=== PATIENT | female | born 1945 | race Caucasian/White ===

== ENCOUNTER 2017-08-14 14:56 | Emergency (ER) | payer MEDICARE ==
[~2017-08-14] VITALS: Ht 165.1 cm; Wt 127.5 kg
[~2017-08-14 14:56] MED LIST: CARVEDILOL12.5 MG PO; DICLOFENAC SODI75 MG PO; DILANTIN100 MG PO; FLONASE2 SPRAY NS; HYDROCHLOROTHIA25 MG PO; LANSOPRAZOLE15 MG PO; LIPITOR10 MG PO; NORCO 5-325 TA1 EACH PO; OCUVITE LUTEIN1 EAC1 PO; PHENOBARBITAL32.4 MG PO; PRAMIPEXOLE0.125 MG PO; RANITIDINE HCL150 MG PO; TESSALON PERLE100 MG PO; VITAMIN C500 M1
[2017-08-14] MEDS ORDERED: OMEPRAZOLE20 MG PO (15:36)
[2017-08-14] MEDS ORDERED: GABAPENTIN100 MG PO (15:36)
== END 2017-08-14 20:21 | disposition short-term general hospital (02) ==
LOC: ED 14:56
PROC: 0T9B70Z Drainage of Bladder with Drainage Device, Via Natural or Artificial Opening (ICD-10-PCS; principal; 2017-08-14)
DX: G40.909 Epilepsy, unspecified, not intractable, without status epilepticus (principal); K21.9 Gastro-esophageal reflux disease without esophagitis; I10 Essential (primary) hypertension; I25.2 Old myocardial infarction; Z87.891 Personal history of nicotine dependence; Z88.6 Allergy status to analgesic agent; Z79.899 Other long term (current) drug therapy
CPT/HCPCS: 51701; 51702; 70450; 71045; 80053; 80185; 81001; 85025; 96374; 96375; 99285; J2060; J7040; Q2009

== ENCOUNTER 2017-08-23 13:00 | Emergency (ER) | payer MEDICARE ==
[~2017-08-23] VITALS: Ht 165.1 cm; Wt 127.5 kg
[~2017-08-23 13:00] MED LIST changes: +GABAPENTIN100 MG PO; +OMEPRAZOLE20 MG PO
[2017-08-23] MEDS ORDERED: PHENYTOIN SODI100 MG PO (13:43)
[2017-08-23] MEDS ORDERED: BACTRIM DS TAB1 EACH PO (14:39)
--- NOTE | 2017-08-23 20:49 | EKG ---
[facility] [address] [facility] [place], [place] [address] Signed Normal sinus rhythm ST \T\ T wave abnormality, consider anterior ischemia Abnormal ECG No previous ECGs available Confirmed by LITO CAMPBELL MD ([id number]) on 08/23/2017 8:49:38 PM Electronically Signed By: LITO CAMPBELL MD 08/23/17 2049 PATIENT NAME: GILLES ARELLANO Electrocardiogram DATE OF : 47 PHYSICIAN: LITO CAMPBELL MD REPORT #: [id number] REPORT IS CONFIDENTIAL AND NOT TO BE RELEASED WITHOUT AUTHORIZATION
== END 2017-08-23 15:07 | disposition home or self-care (01) ==
LOC: ED 13:00
DX: N39.0 Urinary tract infection, site not specified (principal); R42 Dizziness and giddiness; G40.909 Epilepsy, unspecified, not intractable, without status epilepticus; I25.2 Old myocardial infarction; I10 Essential (primary) hypertension; K21.9 Gastro-esophageal reflux disease without esophagitis; Z87.891 Personal history of nicotine dependence; Z88.6 Allergy status to analgesic agent; Z79.899 Other long term (current) drug therapy
CPT/HCPCS: 71045; 80053; 80185; 81001; 84484; 85025; 93005; 93010; 99283

== ENCOUNTER 2020-12-25 14:23 | Emergency (ER) | payer MEDICARE ==
[~2020-12-25] VITALS: Ht 165.1 cm; Wt 124.3 kg
[~2020-12-25 14:23] MED LIST changes: +BACTRIM DS TAB1 EACH PO; +PHENYTOIN SODI100 MG PO
--- OUTSIDE RECORDS SUMMARY | 2020-12-25 15:20 | XMS ---
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 Care History Medical/Surgical 06/05/2018 [facility] - Patient is currently established with [facility]. If patient is seen in the ED during business hours. Please contact CHWs at [facility]. Care Recommendation: This patient has had 5 or more Emergency Department visits in the last 12 months.\T\nbsp; Patient requires education on the scope and purpose of the ED as an acute care provider not a Primary Care Provider and should not be utilized for chronic conditions.\T\nbsp; These are guidelines and the provider should exercise clinical judgment when providing care. E.D. VISIT COUNT (12 MO.) [address] [place] [address] TOTAL 1 NOTE: Visits indicate total known visits. ED/UCC VISIT TRACKING (12 MO.) 12/25/2020 14:24 [facility]ON[facility] Angel [place] TYPE: Emergency COMPLAINT: - DIZZINESS INPATIENT VISIT TRACKING (12 MO.) No inpatient visits to display in this time frame [email or web address]
[2020-12-25] MEDS ORDERED: ZOFRAN4 MG PO (18:44)
[2020-12-25] MEDS ORDERED: CEPHALEXIN500 MG PO (18:44)
--- NOTE | 2020-12-26 09:09 | EKG ---
[facility] [address] [facility] [place] [address] Signed Normal sinus rhythm Nonspecific T wave abnormality Abnormal ECG When compared with ECG of 02-JUN-2018 12:27, T wave inversion now evident in Anterior leads Confirmed by LITO CAMPBELL MD ([id number]) on 12/26/2020 9:09:13 AM Electronically Signed By: LITO CAMPBELL MD 12/26/20908 PATIENT NAME: GILLES ARELLANO Electrocardiogram DATE OF : 47 PHYSICIAN: LITO CAMPBELL MD REPORT #: [id number] REPORT IS CONFIDENTIAL AND NOT TO BE RELEASED WITHOUT AUTHORIZATION
== END 2020-12-25 19:08 | disposition home or self-care (01) ==
LOC: ED 14:23
DX: N12 Tubulo-interstitial nephritis, not specified as acute or chronic (principal); G40.909 Epilepsy, unspecified, not intractable, without status epilepticus; I25.2 Old myocardial infarction; I10 Essential (primary) hypertension; K21.9 Gastro-esophageal reflux disease without esophagitis; Z87.891 Personal history of nicotine dependence; Z79.899 Other long term (current) drug therapy
CPT/HCPCS: 80053; 80185; 81001; 83735; 84484; 85025; 93005; 93010; 96365; 96366; 99284-25; J0696

== ENCOUNTER 2021-07-15 09:35 | Emergency (ER) | payer MEDICARE ==
[~2021-07-15] VITALS: Ht 165.1 cm; Wt 124.3 kg
[~2021-07-15 09:35] MED LIST changes: +CEPHALEXIN500 MG PO; +ZOFRAN4 MG PO
--- OUTSIDE RECORDS SUMMARY | 2021-07-15 09:42 | XMS ---
PreManage Notification: GILLES ARELLANO Security Ornamental Ironworker Events No recent Security Events currently on file CRITERIA MET - Group Notification CARE PROVIDERS SAWYER FOOTE [facility] 12/26/2020-Current PHONE: [phone] DELMER MARCUS Internal Medicine: Pulmonary Disease 06/05/2018-Current PHONE: Unknown Raul has no Care Guidelines for this patient. Care History Medical/Surgical 06/05/2018 [facility] - Patient is currently established with [facility]. If patient is seen in the ED during business hours. Please contact CHWs at [facility]. Care Recommendation: This patient has had 5 [...] providing care. E.D. VISIT COUNT (12 MO.) 2 LEONID Villegas TOTAL 2 NOTE: Visits indicate total known visits. ED/UCC VISIT TRACKING (12 MO.) 07/15/2021 09:36 [facility] Angel OR TYPE: Emergency COMPLAINT: - SEIZURE 12/25/2020 14:24 LEON[facility] Angel [place] TYPE: Emergency COMPLAINT: - DIZZINESS DIAGNOSES: - Other terminal makeup operator (current) drug therapy - Old myocardial infarction - Tubulo-interstitial nephritis, not specified as acute or chronic - Epilepsy, unspecified, not intractable, without status epilepticus - Personal history of nicotine dependence - Dizziness and giddiness - Gastro-esophageal reflux disease without esophagitis - Essential (primary) hypertension INPATIENT VISIT TRACKING (12 MO.) No inpatient visits to display in this time frame [email or web address]
== END 2021-07-15 14:11 | disposition home or self-care (01) ==
LOC: ED 09:35
DX: G40.909 Epilepsy, unspecified, not intractable, without status epilepticus (principal); I10 Essential (primary) hypertension; K21.9 Gastro-esophageal reflux disease without esophagitis; Z87.891 Personal history of nicotine dependence; Z88.6 Allergy status to analgesic agent; Z79.899 Other long term (current) drug therapy
CPT/HCPCS: 80048; 80185; 81001; 85025; 96365; 99284-25; Q2009

== ENCOUNTER 2022-06-08 14:35 | Emergency (ER) | payer MEDICARE ==
[~2022-06-08] VITALS: Ht 165.1 cm; Wt 124.3 kg
[2022-06-08] MEDS ORDERED: ATORVASTATIN CA40 MG PO (14:48)
== END 2022-06-08 21:26 | disposition home or self-care (01) ==
LOC: ED 14:35
DX: D64.9 Anemia, unspecified (principal); K63.9 Disease of intestine, unspecified; I10 Essential (primary) hypertension; G40.909 Epilepsy, unspecified, not intractable, without status epilepticus; I25.2 Old myocardial infarction; K21.9 Gastro-esophageal reflux disease without esophagitis; Z87.891 Personal history of nicotine dependence; Z88.6 Allergy status to analgesic agent; Z79.899 Other long term (current) drug therapy
CPT/HCPCS: 36415; 36430; 74177; 80048; 85025; 85610; 86850; 86900; 86901; 86922; 99284-25; P9016; Q9967

== ENCOUNTER 2022-06-29 14:59 | Inpatient (IN) | payer MEDICARE ==
[~2022-06-29] VITALS: Ht 165.1 cm; Wt 101.4 kg
[~2022-06-29 14:59] MED LIST changes: +ATORVASTATIN CA40 MG PO
--- NOTE | 2022-07-07 15:25 | NUR ---
07/07/22 1525 Nohemi Valdes 1515 PATIENT ARRIVES TO PACU RESTING WITH EYES CLOSED. MOANING AT TIMES, C/O "IT HURTS." RESP EVEN AND UNLABORED, MASK AT 6 LITERS. 1520 PATIENT CONTINUES TO C/O ABD PAIN, RESTING WITH EYES CLOSED, MOANING AT TIMES. WHEN ASKED RATES PAIN AT 10/10. DENIES NAUSEA.
--- NOTE | 2022-07-07 16:20 | NUR ---
PT TO FLOOR WITH [facility]. PT AWAKE BUT DROWSY. RATES PAIN 6\10. STATES SHE LIVES AT HOME AT 3\10.
--- NOTE | 2022-07-07 17:12 | NUR ---
ADMINISTERED PAIN MEDS FOR 9\10 BACK PAIN. PT HAS DTR AT BEDSIDE.
--- NOTE | 2022-07-07 23:06 | NUR ---
CALL LIGHT ANSWERED. pt COMPLAINS OF THROAT PAIN. LOSANGE PROVIDED. pt RATES PAIN 4/10 IN BACK AND STOMACH, "IT'S OKAY". DENIES NEED FOR ADDITIONAL MEDICATION. CALL LIGHT IN REACH.
--- NOTE | 2022-07-08 00:37 | NUR ---
Pt lying in bed resting quietly. able to make needs known. resp even et unlabored O2 @ 2L NC. Midline dressing clean dry and intact. cooper patent and intact draining yellow urine. Pt states pain level at 4 and is tolerable. no acute distress noted at this time.
--- NOTE | 2022-07-08 01:05 | NUR ---
CALL LIGHT ANSWERED. PRN PAIN MEDICATION ADMINISTERED FOR 9/10 PAIN IN BACK AND ABDOMEN. REPOSITIONED pt WITH 2PA HIGHER IN BED, PILLOWS UNDER BOTH SIDES FOR COMFORT. pt PAINFUL WITH MOVEMENT, PILLOW TO ABD TO BRACE. NEW ICE PACK IN PLACE ON INCISION. BITES OF JELLO PROVIDED WITH PAIN MEDICATIONS. IVF INFUSING WNL. CALL LIGHT IN REACH.
--- NOTE | 2022-07-08 02:06 | NUR ---
CPOX ALARMING, pt APPEARS TO HAVE APNIC SPELL, SPO2 DROPS TO 81% AND BACK UP TO 93%. 2L OXYGEN BY NC APPLIED FOR SLEEP. CALL LIGHT IN REACH. IVF INFUSING WNL ORDERED.
--- NOTE | 2022-07-08 06:36 | NUR ---
MD informed of pt low BP 110/45 no new orders given stated to monitor BP.
--- NOTE | 2022-07-08 07:05 | NUR ---
REPORT FROM PRAVEEN RN, PT RESTING IN BED EYES CLOSED, PLASENCIA DRAINING, IV FUSING, OXYGEN ON, CALL LIGHT IN REACH AND DR. RODRIGUEZ HERE - NEW ORDERS FOR MG/KCL NOTED. MONITOR BP - PLAN FOR UP IN AND .
[2022-07-08] MEDS ORDERED: DILANTIN100 MG PO (07:52)
[2022-07-08] MEDS ORDERED: FERROUS GLUCON324 M1 PO (07:54)
[2022-07-08] MEDS ORDERED: CLEARLAX119 GM PO (07:55)
[2022-07-08] MEDS ORDERED: OMEPRAZOLE40 MG PO (07:55)
[2022-07-08] MEDS ORDERED: VITAMIN D21250 MCG PO (07:56)
--- NOTE | 2022-07-08 07:56 | NUR ---
pt eyes closed, resp even - 100% ox on 2l nc hr 85 - mg iv started.
--- NOTE | 2022-07-08 09:00 | NUR ---
THIS SN (RAO SHARIF) TO PT ROOM TO TAKE VITALS AND PERFORM ASSESSMENT. PT RESTING IN BED. VITALS OBTAINED AND ASSESSMENT PERFORMED (SEE CHART). HELPED PT. ADJUST IN BED TO HELP ALLEVIATE BACK PAIN. CALL LIGHT LEFT WITHIN REACH, PT. DENIES ANY FURTHER NEEDS AT THIS TIME.
--- NOTE | 2022-07-08 09:38 | NUR ---
pt trsfered from bed to with max assist, slow to move with much encouragement. call light in reach, cpox reading 96% room air, hr 89-90. pt demonstrates is well up to 1250 - exhales and coughs splinting abd. 100 % room air. - stays in and plans for shower today.
--- NOTE | 2022-07-08 10:00 | NUR ---
THIS SN (RAO SHARIF) TO PT. ROOM TO GIVE MORNING MEDICATIONS WITH PRIMARY NURSE. ENCOURAGED AND ASSISTED PT. TO GET UP INTO CHAIR. PT. WAS ABLE TO GET TO CHAIR WITH EXTENSIVE ASSISTANCE. ASSISTED PT. TO GET COMFORTABLE WITH PILLOWS AND PROVIDED A WARM BLANKET. CALL LIGHT WITHIN REACH, DENIES ANY OTHER NEEDS AT THIS TIME.
--- NOTE | 2022-07-08 11:10 | NUR ---
Spoke with Lesley. She cont. to live in a Duplex on the [facility]. She has problems with mobility and states she needs a knee replacement. Surgery yesterday for a R colectomy. Pt. states she is very drowsy. She has a cane and walker at home. She is requesting a wc due to her knee pain. I will ask Dr. Lyons if he will approve a walker. Pt states her daughter will stay with her and provide care until she is able to care for herself. Pt. plans on dc to home when cleared medically.
--- NOTE | 2022-07-08 11:44 | NUR ---
MED REC COMPLETE
--- NOTE | 2022-07-08 12:28 | NUR ---
PT UP IN CH RESTING WITH CALL LIGHT, CPOX AND EYES CLOSED. LEGS ELEVATED.
--- NOTE | 2022-07-08 14:06 | NUR ---
PT SITTING IN CHAIR, WRAPPED IN BLANKET AND IV ALARM SOUNDING. PT LOOKED LIKE SHE WAS IN SOME DISCOMFORT, SAID PAIN WAS 8-9, AND THAT SHE WAS COLD. PRAYED WITH PT, AND INFORMED RN MARY OF PT'S NEEDS. CHEMICAL OPERATIONS SPECIALIST TIA CARED WITH A WARM BLANKET. LEFT G.POST, WILL FOLLOW
--- NOTE | 2022-07-08 14:21 | NUR ---
PT DTG ALEJO CALLED FOR UPDATE, THIS RN GAVE PHONE UPDATES. DISCUSSED PLAN OF CARE FOR POST DC TO HOME. DTG REPORTS BROTHER DELMER IS NOT RELIABLE TO CARE FOR HER DUE TO DRUGS/ETOH - HE IS LIVING WITH PT AT HER HOME AND SISTER IS WORRIED THAT HE MAY STEAL HER PAIN MEDS AND NOT TAKE CARE OF HER.
--- NOTE | 2022-07-08 14:38 | NUR ---
THIS SN (RAO SHARIF) TO PT. ROOM TO GIVE MEDS WITH INSTRUCTOR. PILLOWS ADJUSTED TO PROMOTE PAIN RELIEF AND WARM BLANKET OBTAINED FOR PT. LOPRESSOR AND PRN PAIN MEDS GIVEN WITH INSTRUCTOR (CHINYERE KLINE). THIS SN AND INSTRUCTOR SAT AND VISITED WITH THE PT. I&O'S RECORDED WHILE VISITING WITH PT. PT. NOW VISITING WITH "DELMER", CALL LIGHT WITHIN REACH.
--- NOTE | 2022-07-08 18:49 | NUR ---
THIS SN (RAO SHARIF) TO PT. ROOM TO TAKE VITALS, I&O'S AND GIVE PRN PAIN MEDICATION (SEE EMAR). MEDS GIVEN WITH PRIMARY NURSE. WARM BLANKETS OBTAINED FOR PATIENT AND FIXED BLANKETS FOR HER. BRAIDED PT'S HAIR WHILE SHE CONVERSED WITH HER DAUGHTER ON THE PHONE. PROVIDED PT. WITH INFORMATION ON FINANCIAL RESOURCES. ASSISSTED PT. TO PUT ON OXYGEN AND GET READY FOR BED. CALL LIGHT WITHIN REACH, ENCOURAGED PT. TO CALL IF SHE NEEDED ANYTHING, DENIES FURTHER REQUESTS AT THIS TIME.
--- NOTE | 2022-07-08 20:45 | NUR ---
call light answered, assisted pt with position change in bed. pt heard stating, "my arm feels wet". iv site assessed, appears infiltrated and leaking. iv fluids placed in standby and primary rn nikolay made aware and to assess. no additional needs or concerns verbalized by pt, call light in reach.
--- NOTE | 2022-07-08 23:15 | NUR ---
in to assist pt to the chair, 2PA pivot, pillows in place, no further needs at this time
--- NOTE | 2022-07-09 00:33 | NUR ---
pt sitting in recliner in room resting quietly. pt continues to complain of back pain given PRN dilaudud med was effective. resp even et unlabored. pt able to make needs known O2 @ 2L NC. cooper patent and intact draining yellow urine. pt IV infiltrated new IV started in left hand. No acute distress noted at this time. will continue to monitor.
--- NOTE | 2022-07-09 06:35 | OR ---
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 PROCEDURES: Right colectomy with [id number] isoperistaltic anastomosis, hand-sewn in two layers. FINDINGS: No metastatic lesions in the peritoneum or liver. INDICATIONS: Lesley is a 76-year-old female, who I saw originally for iron deficiency anemia. I helped her in 2016, at the age of 69 with her initial screening colonoscopy. She had seven hyperplastic polyps removed. They were all smaller than 8 mm in size. She had internal hemorrhoids. She has some diverticulosis. She had done well with Versed and fentanyl. We asked her to come back in 10 years for repeat colonoscopy. In the meantime, she has continued with anemia. She went up to [place], [place] to Dr. Loi Grande for her upper and lower endoscopy. He found a mass what seemed to be the hepatic flexure. Biopsies were positive for adenocarcinoma. She had also been in the emergency room on June 08, 2022. The CT scan and pelvis had showed a thickened mass actually in the cecum. Dr. Grande had ordered another CT scan of the abdomen and pelvis and again, she has a tumor in her cecum. She told me she has had trouble for quite some time. However, she was taking care of her failing . He actually just recently . He was cremated, but his celebration of life was coming in five days. In the office, she told me she would wait until the next week to have her surgery. She had actually come to the office with her friend from orthodoxy. Although, she does have four children. She happens to live in a duplex here in town, but . For long distances, she will use a wheelchair, walker, or cane because of arthritis in the right knee. She did describe some crampy abdominal pain after eating with the bowel prep. However, she got through the bowel prep for the colonoscopy as well as for the surgery today. She also describes some back pain. There was no obvious metastatic disease in the liver on the two CT scans. In the office, I gave her our brochure on colon polyps and colon cancer. We reviewed that carefully. I marked the area of her cancer. I reviewed with through the section on the right colectomy. She Electronically Signed By: MARILYN RODRIGUEZ MD 07/09/22 0635 PATIENT NAME: LESLEY ARELLANO OPERATIVE REPORT DATE OF : 47 REPORT #: [id number] PHYSICIAN: MARILYN RODRIGUEZ MD PCP: BRANDON SHARIF MD REPORT IS CONFIDENTIAL AND NOT TO BE RELEASED WITHOUT AUTHORIZATION [address] [address] Signed understands this is a moderately significant surgery. She will be in the hospital anywhere from 4 to 7 days if not more. Once her GI function returned, she will be discharged. She understands it would require midline incision. There is risk including, but not limited to bleeding, infection, scarring, change in contour the skin, damage to bowel, anastomotic leak, recurrent cancer or incisional hernias and other unforeseen comorbidities. She had expressed understanding and wished to proceed. DESCRIPTION OF PROCEDURE: I met with Lesley in our preop area. After answering her questions, she was taken to the operating room and placed in the supine position under general endotracheal tube anesthesia. She was given preoperative antibiotics along with subcutaneous heparin. SCDs were utilized. A Kolb catheter was inserted with return of clear yellow urine without difficulty. She was prepped and draped in the usual sterile fashion. With pharmacologic paralysis and deep palpation, we could feel the tumor. It seemed to be about mid right abdomen. After this, a standard periumbilical incision was made and carried in the abdomen with the help of the cautery without difficulty. We could easily visualize the tumor in her cecum. We freed up the right colon along the white line of Toldt around the hepatic flexure past the gallbladder and over the duodenum past the pancreas. This allowed us to bring the entire right colon and terminal ileum in transverse colon up and out of the abdomen. We divided the transverse colon just to the midline with the help of a linear stapler. We took about 12-15 cm of the terminal ileum and we divided it with the help of the linear stapler. The mesentery was then divided between Pean clamps and 0 Vicryl ties. The entire specimen was passed off the field for photodocumentation. After this, we brought the terminal ileum around to the transverse colon and performed a standard clcy-yr-udio isoperistaltic anastomosis hand-sewn in two layers with Vicryl and silk sutures. At the anastomosis over 2.5 cm in length. We then closed the mesenteric rent with a running 3-0 Vicryl suture. The abdomen was copiously irrigated and suctioned out until clear. We found no palpable or visible evidence of any metastatic lesions on the peritoneum or the liver. After this, the bowel was returned to its position and the midline fascia was closed with interrupted #1 [id number] PDS sutures. The wound was irrigated and suctioned out until clear. Local anesthetic was injected in the abdominal wall. The dermis was reapproximated with interrupted 3-0 Monocryl sutures. The skin was reapproximated with audie. Dry gauze and tape were then applied. After this, bilateral abdominal wall TAP blocks were provided by our anesthesia provider. Lesley was then awakened from anesthesia, extubated in the OR, and taken to recovery room in stable condition. The Kolb catheter was left in place. Marilyn Rodriguez MD Electronically Signed By: MARILYN RODRIGUEZ MD 07/09/22 0635 PATIENT NAME: LESLEY ARELLANO OPERATIVE REPORT DATE OF : 47 REPORT #: [id number] PHYSICIAN: MARILYN RODRIGUEZ MD PCP: BRANDON SHARIF MD REPORT IS CONFIDENTIAL AND NOT TO BE RELEASED WITHOUT AUTHORIZATION [facility] [address] [place], [place] [address] Signed ALB/MODL /[id number] cc: MD Brandon Hernandez MD Copies: MARILYN RODRIGUEZ MD, ROBERT D DMD ~ Electronically Signed By: MARILYN RODRIGUEZ MD 07/09/22 0635 PATIENT NAME: LESLEY ARELLANO OPERATIVE REPORT DATE OF : 47 REPORT #: [id number] PHYSICIAN: MARILYN RODRIGUEZ MD PCP: BRANDON SHARIF MD REPORT IS CONFIDENTIAL AND NOT TO BE RELEASED WITHOUT AUTHORIZATION
--- NOTE | 2022-07-09 08:00 | NUR ---
PT UP IN CHAIR BEFORE THIS DYE RANGE TENDER GOT TO ROOM. ELECTRICAL MAINTENANCE MECHANIC HELPED HER INTO CHAIR. CALL [facility] WITHIN REACH.
--- NOTE | 2022-07-09 08:18 | NUR ---
TWO TABS NORCO 5/325MG PO ADMIN FOR REPORTS OF 6/10 BACK/ABD PAIN.
--- NOTE | 2022-07-09 08:20 | NUR ---
THIS SN (RAO SHARIF) TO PT. ROOM TO GIVE MEDS AND TAKE VITALS WITH PRIMARY NURSE (SEE EMAR). BROTH AND TEA BROUGHT FOR PT. AFTER REQUESTED. ASSISTED PT. TO ADJUST PILLOWS FOR COMFORT. CALL LIGHT WITHIN REACH.
--- NOTE | 2022-07-09 09:20 | NUR ---
PT. REPORTED "IT HURTS" DURING POTASSIUM PHOSPHATE INFUSION. STOPPED INFUSION AND OBTAINED WARM PACK FOR COMFORT. WITH INSTRUTOR TURNED PUMP TO 25ML/HR PER PHARMACY ADVICE. STAYED WITH PT. AND RE-BRAIDED HER HAIR WHILE WIATING TO SEE IF IMPROVEMENT IN PAIN. PT. APPEARED TO TOLERATE NEW RATE AND DID NOT REPORT ANY MORE PAIN.
--- NOTE | 2022-07-09 09:57 | NUR ---
THIS SN (RAO SHARIF) TO PT. ROOM TO [facility] VITALS, I&O'S, CHECK UP ON INDUSION DISCOMFORT. PT. DENIES PAIN AT INFUSION SITE. PT. NOW SITTING IN CHAIR, LEGS ELEVATED RESTING WITH EYES CLOSED. CALL LIGHT WITHIN REACH.
--- NOTE | 2022-07-09 12:04 | NUR ---
PATIENT SITTING UP IN CHAIR, NO ACUTE DISTRESS. PATIENT REPORTS HER PAIN IS TOLERABLE AT THIS TIME. MIDLINE ABDOMINAL INCISION IS OPEN TO ROOM AIR, SEB INTACT, NO DRAINAGE-CLOSED, APPEARS TO BE HEALING WELL. PATIENT TOLERATING CLEAR LIQUIDS WELL. HYPOATIVE BOWEL TONES NOTED X4 QUADRANTS. IV SITE PATENT, PT DENIES PAIN TO SITE. POTASSIUM PHOSPHATE INFUSING PER PROVIDER ORDER. NO CURRENT NEEDS, PERSONAL SUPPLIES AND CALL LIGHT WITHIN REACH.
--- NOTE | 2022-07-09 12:05 | NUR ---
PT ALERT, SITTING IN CHAIR WITH TV ON AND READING. PT PLEASANT, SAID NOT MUCH SLEEP LAST NIGHT. GAVE COMFORT, HAD PRAYER. WILL FOLLOW
--- NOTE | 2022-07-09 12:58 | NUR ---
ADMIN TWO TABS NORCO 5/325MG PO FOR REPORTS OF 7/10 ABD/BACK PAIN. IV SITE REMAINS PATENT, FLUIDS INFUSING PER PROVIDER ORDER. FRESH WATER PROVIDED. NO FURTHER NEEDS PER PT.
--- NOTE | 2022-07-09 13:00 | NUR ---
Spoke with Lesley. She is sleeping, but awakens to voice. Discussed Therapy feels she will need a SNF for rehab on discharge. She agrees to placement. Chart faxed to RACHEL at [facility]. He will have the nurse review the chart. They are tentatively accepting for Tuesday.
--- NOTE | 2022-07-09 13:46 | NUR ---
PATIENT IN CHAIR, EYES CLOSED. VITALS AND I/O'S COMPLETED. PLASENCIA DOCUMENTED AND DRAINED. CALL LIGHT WITHIN REACH.
--- NOTE | 2022-07-09 17:12 | PATH ---
[facility] [address] [place], [place] [address] Signed SPECIMEN(S): A RIGHT COLON SPECIMEN SOURCE: A. RIGHT COLON CLINICAL HISTORY: Colon cancer FINAL PATHOLOGIC DIAGNOSIS: Colon, right hemicolectomy: - Invasive adenocarcinoma with the following features: - Tumor site: Cecum. - Histologic type: Adenocarcinoma. - Histologic grade: Grade 2, moderately differentiated. - Tumor size: 8.4 cm. - Multiple primary sites: Not applicable. - Tumor extent: Invades through muscularis propria into the pericolonic tissue. - Macroscopic tumor perforation: Not identified. - Lymphvascular invasion: Not identified. - Perineural invasion: Not identified. - Tumor bud score: Low (0-4). - Treatment effect: No known presurgical therapy. - Margins: - Margin status for invasive carcinoma: All margins negative for invasive carcinoma. - Margin status for noninvasive tumor: All margins negative for noninvasive tumor. - Regional lymph nodes: - All regional lymph nodes: Negative for tumor. - Number of lymph nodes examined: 26. - Tumor deposits: Not identified. 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 - JOSLYN/RADHA testing: Testing may not be indicated in the absence of metastatic tumor and has not been ordered. If this testing is desired, please contact [employer] with prior authorization if applicable. - Additional pathologic findings: Appendix with fibrous obliteration. - Pathologic stage classification: pT3 pN0. PATIENT NAME: GILLES ARELLANO PATHOLOGY DATE OF : 47 REPORT #: [id number] PHYSICIAN: KAROLINA PATHOLOGY PCP: BRANDON SHARIF MD REPORT IS CONFIDENTIAL AND NOT TO BE RELEASED WITHOUT AUTHORIZATION [facility] [address] [place], [place] [address] Signed COMMENT: As part of [employer]' Quality Improvement Program, this case was reviewed by another member of our pathology staff. BRP:NRT:cml:C1NR MICROSCOPIC EXAMINATION: Histologic sections of all submitted blocks are examined by light microscopy. These findings, together with the gross examination, support the pathologic diagnosis. GROSS DESCRIPTION: The specimen, labeled and designated "Yamileth Arellano, right colon," is received in formalin and consists of a previously opened portion of right colon, terminal ileum with an attached appendix, and pericolonic adipose tissue. The right colon is 19.2 cm in length and has an average internal circumference of 6.5 cm. The terminal ileum is 10.0 cm in length and has an average internal circumference of 4.0 cm. The appendix measures 5.7 x 0.7 cm. The serosal surface is pink and smooth with an area of puckering around the cecum. The serosal surface in this area is inked blue. The specimen was previously opened revealing an 8.4 x 6.5 x 2.3 cm pink centrally ulcerated mass within the cecum. This mass is located 10.6 cm from the distal resection margin, 10.8 cm from the proximal resection margin, and 6.6 cm from the vascular root resection margin. The mass abuts the ileocecal valve. Due to the previous opening of the specimen the appendiceal orifice cannot be grossly assessed. The previously truncated, intact portion of appendix is 1.6 cm from the mass. Sectioning through the mass reveals extension through the muscularis propria and into the adjacent adipose tissue. The mass is 0.2 cm from the mesenteric serosal surface (inked blue). The remaining mucosa of the large bowel is pink-naranjo and finely granular with an area of black dye discoloration distal to the mass. The right colon has an average wall thickness of 0.7 cm. The mucosa of the terminal ileum is yellow-naranjo and finely granular with the distal aspect being slightly edematous. The terminal ileum has an average wall thickness of 0.8 cm. The intact portion of appendix displays a 0.2 cm lumen and an average wall thickness of 0.3 cm. The mucosal surface is pink-naranjo and finely granular. Upon dissection of the attached pericolonic adipose tissue multiple possible lymph PATIENT NAME: GILLES ARELLANO PATHOLOGY DATE OF : 47 REPORT #: [id number] PHYSICIAN: KAROLINA BISHOP PCP: BRANDON SHARIF MD REPORT IS CONFIDENTIAL AND NOT TO BE RELEASED WITHOUT AUTHORIZATION [address] [address] Signed nodes are grossly identified. Multiple of these lymph nodes are within close proximity of the vascular root resection margin. A portion of a possible omentum is loosely attached to the distal aspect of the colon measuring 12.5 x 6.5 x 2.5 cm. Sectioning reveals a yellow-naranjo multilobulated adipose tissue. No discrete mass lesions are grossly identified. Equine Pharmacology Technician sections are submitted in 25 cassettes. Cassette Summary: (A1) distal resection margin, shave (A2) proximal resection margin, shave (A3) vascular root resection margin, shave (A4) three possible lymph nodes within close proximity of vascular root, two submitted whole, one inked and bisected (A5) two possible lymph nodes within close proximity of vascular risk one inked and bisected, the opposite sectioned (A6) two possible lymph nodes within close proximity of vascular root, one inked and sectioned, the opposite bisected (A7) one possible lymph node within close proximity of vascular root, sectioned (A8) uninvolved large and small bowel (A9) distal tip of appendix and mid cross-sections of appendix (A10) proximal aspect of truncated appendix into mass (of the proximal aspect inked green-not true margin) (A11) mass to ileocecal valve and terminal ileum (A12) mass uninvolved large bowel (A13) mass to adjacent pericolonic adipose tissue (A14) mass to serosa (A15) one possible lymph node, bisected (A16) four possible lymph nodes, submitted whole (A17) five possible lymph nodes, submitted whole (A18) two possible lymph nodes, each bisected, one arbitrarily inked (A19) two possible lymph nodes, each bisected, one arbitrarily inked (A20) two possible lymph nodes, each bisected, one arbitrarily inked (A21) two possible lymph nodes, each bisected, one arbitrarily inked (A22-A24) one possible lymph node, sectioned (A25) omentum FB (under the direct supervision of a pathologist) The Gross Description was prepared using a voice recognition system. The report was reviewed for accuracy; however, sound-alike word errors, addition and/or deletions may occur. If there is any PATIENT NAME: GILLES ARELLANO PATHOLOGY DATE OF : 47 REPORT #: [id number] PHYSICIAN: KAROLINA BISHOP PCP: BRANDON SHARIF MD REPORT IS CONFIDENTIAL AND NOT TO BE RELEASED WITHOUT AUTHORIZATION [facility] [address] [place] [id number] Signed question about this report, please contact Client Services. PERFORMING LABORATORY: The technical component [place] [address] (CLIA# [id number]). Professional interpretation was performed by [facility], [address] [address] (CLIA# [id number]). Diagnostician: Michael Asif MD Pathologist Electronically Signed 07/09/2022 Copies: ~ PATIENT NAME: GILLES ARELLANO PATHOLOGY DATE OF : 47 REPORT #: [id number] PHYSICIAN: KAROLINA BISHOP PCP: BRANDON SHARIF MD REPORT IS CONFIDENTIAL AND NOT TO BE RELEASED WITHOUT AUTHORIZATION
--- NOTE | 2022-07-09 17:17 | NUR ---
ADMIN TWO TABS [facility] 5/325MG PO AT THIS TIME FOR 5/10 BACK/ABD PAIN. PATIENT AMBULATED WITH SENIOR STAFF SPECIALIZED EMPLOYMENT ASSIST; SBA WITH WALKER, JADEN WELL.
--- NOTE | 2022-07-09 22:30 | NUR ---
pt lying in bed talking on the phone. pt able to make needs known. pt remains on O2 @ 2L NC resp even et unlabored. pt states pain is tolerable at this time. pt 2100 lopressor held due to low bp of 102/39 MD is aware of low blood pressures. pt cooper patent and intact. pt stated has been more ambulatory today and continues to belch but no passing of gas. No acute distress noted at this time.
--- NOTE | 2022-07-10 07:15 | NUR ---
ASSUMING CARE OF PT. RECEIVED REPORT FROM YESI QUEZADA. PT RESTING IN BED WITH EYES CLOSED, RESPIRATIONS EVEN AND UNLABORED. D5LR @125ML/HR. CALL LIGHT WITHIN REACH AND BEDRAIL UP FOR SAFETY.
--- NOTE | 2022-07-10 08:10 | NUR ---
MORNING ASSESSMENT COMPLETED AND MEDICATION GIVEN. PT 1PA WITH WALKER TO CHAIR IN ROOM. PT TOLERATED WELL. PT USING PILLOW FOR PRESSURE ON ABD DURING TRANSFER. LUNG SOUNDS CLEAR, HEART STRONG, BOWEL TONES HYPOACTIVE. PT COMPLAINT OF CHRONIC BACK PAIN WHICH IS ASSISTED WITH PILLOW ON LOWER BACK WHEN SITTING IN THE CHAIR.
--- NOTE | 2022-07-10 09:50 | NUR ---
PT COMPLAINT OF 5/10 BACK PAIN. MEDICATION PROVIDED AND IV MAGNESIUM STARTED. PT SITTING IN CHAIR IN ROOM. CALL LIGHT WITHIN REACH, PT BELONGINGS AT BEDSIDE. PLASENCIA CATHETER REMOVED, PT TOLERATED WELL.
--- NOTE | 2022-07-10 10:13 | NUR ---
IV INITIATED IN PT'S RIGHT AC. WELL TOLERATED. IV MAGNESIUM NOW INFUSING THROUGH NEW IV SITE. CALL LIGHT WITHIN REACH. WILL CONTINUE TO MONITOR.
--- NOTE | 2022-07-10 12:07 | NUR ---
PT RESTING IN CHAIR IN ROOM, CALL LIGHT WITHIN REACH, PT BELONGINGS AT BEDSIDE. PT DENIES NEEDS AT THIS TIME, PT WATCHING TV.
--- NOTE | 2022-07-10 14:20 | NUR ---
PATIENT SITTING UP IN RECLINER, APPEARS COMFORTABLE RESTING EYES. CALL LIGHT WITHIN REACH. APPEARS TO HAVE NO OTHER NEEDS AT THIS TIME.
--- NOTE | 2022-07-10 19:15 | NUR ---
ASSUMED CARE OF PT. UPON RECEIVING BEDSIDE REPORT FROM DAY RN. PT AOX4, NAD, NO C/O. WILL CONTINUE TO MONITOR AND FOLLOW POC.
--- NOTE | 2022-07-11 06:48 | NUR ---
PT WITH NO ACUTE OVERNIGHT EVENTS. VSS, NAD, NO C/O. MIDLINE SURGICAL INCISION APROXIMATED WITH SEB. NO DRAINAGE OR S/S OF INFECTION NOTED. WILL CONTINUE TO MONITOR AND FOLLOW POC.
--- NOTE | 2022-07-11 08:22 | NUR ---
DR. RODRIGUEZ ROUNDED ON PATIENT. PLANS FOR PATIENT TO DC TO SNF. PATIENT IS NO LONGER ON FLUID RESTRICTION, AND OKAYED TO USE ABDOMINAL BINDER WHEN PATIENT UP AMBULATING.
--- NOTE | 2022-07-11 14:03 | NUR ---
PATIENT SITTING UP IN RECLINER TALKING ON PHONE. PLAN TO AMBULATE IN HALLS. PATIENT STATES " I AM READY TO TRY THE ABDOMINAL BINDER AND SEE IF THAT MAKES A DIFFERENCE".
--- NOTE | 2022-07-11 15:38 | NUR ---
PATIENT AMBULATED IN HALLS, TOLERATED ACTIVITY WELL. PATIENT REPORTS ABDOMINAL BINDER HELPS. NO OTHER NEEDS AT THIS TIME.
--- NOTE | 2022-07-11 19:29 | NUR ---
ASSUMED CARE OF PATIENT UPON RECEIVING BEDSIDE REPORT FROM DAY RN. PT UP IN CHAIR, AOX2-3, TALKING ON PHONE. NAD, NO C/O. WILL CONTINUE TO MONITOR AND FOLLOW POC.
--- NOTE | 2022-07-12 03:19 | NUR ---
ASSISTED PATIENT FROM BEDSIDE COMMODE BACK TO BED. MELTER SUPERVISOR OPEN HEARTH FURNACE PILAR KEITH AND THIS ENGINEER AND GEOLOGIST BOOSTED PATIENT UP TO THE BED. PATIENT VOIDED 950ML YELLOW URINE. CALL LIGHT AND SIDE TABLE WITHIN REACH.
--- NOTE | 2022-07-12 07:00 | NUR ---
report from nika moore, pt up in call light in reach, denies needs, heat turned up for comfort. iv sl,
--- NOTE | 2022-07-12 07:20 | NUR ---
PT WITH NO ACUTE OVERNIGHT EVENTS. VSS, NAD, NO C/O. PAIN WELL-CONTROLLED WITH CURRENT REGIMEN. HANDED OVER CARE OF PT. TO DAY NURSE UPON GIVING BEDSIDE SHIFT REPORT.
--- NOTE | 2022-07-12 08:53 | NUR ---
PT IN CHAIR. PT REQ TO USE BATHROOM. PT ASSISTED UP TO BATHROOM 1 PA W FWW. PT BACK TO CHAIR. VITALS AND IS AND OS COMPLETE. FRESH ICE WATER GIVEN. NO FURTHER NEEDS. CALL LIGHT WITHIN REACH
--- NOTE | 2022-07-12 10:00 | NUR ---
Spoke with Lesley and she plans on SNF today. Let her know she has been accepted and [facility] van is scheduled for 1 pm. She denies needs.\ Texted Dr. Lyons and updated I left the SNF orders on the dictation desk for him to complete.
--- NOTE | 2022-07-12 11:14 | NUR ---
in room with dr rowan - plan for dc today to [facility] - pt in [facility], [employer] cdi with audie wnl - iv dc left arm.
--- NOTE | 2022-07-12 11:57 | NUR ---
Received orders from Dr. Lyons and faxed to RACHEL at [facility] with [facility], covid test, updated notes and PT notes.
--- NOTE | 2022-07-12 12:57 | NUR ---
PT SITTING IN CHAIR, ALERT AND ORIENTED. PT IS SCHEDULED TO DC TO [facility] LATER TODAY. SHE SEEMS IN GOOD SPIRITS, SAID SHE SLEPT WELL AND THANKED ME FOR MY VISITS WITH HER. GAVE BLESSING AND WILL FOLLOW NEEDED
--- NOTE | 2022-07-13 07:20 | DS ---
[facility] [address] [place], [place] [address] Signed ADMISSION DATE: 07/07/2022 DISCHARGE DATE: 07/12/2022 FINAL DIAGNOSIS: Cecal adenocarcinoma (stage II). PROCEDURE: Right colectomy. HISTORY OF PRESENT ILLNESS: Lesley is a 76-year-old female who had presented to the hospital with her cecal adenocarcinoma following her colonoscopy. This was discovered while she was having right-sided pain and anemia. She underwent an uncomplicated right colectomy with a [id number] isoperistaltic anastomosis hand-sewn in two layers. She did well both intraop and postop. She had replacement of some of her potassium, magnesium, phosphorus. She advanced her diet quite nicely. Her incision is healing very well. There are no local signs or symptoms of infection. All audie remain in place. She is having good bowel movements. Abdomen is benign. However, she is quite weak and deconditioned and therefore has headed for one of our local extended care facilities with ongoing physical therapy. She has been asked to assist here in the hospital. DISCHARGE PLANS AND MEDICATIONS: Lesley will be discharged to the local extended care facility for ongoing physical therapy. She will continue her chronic medications at the senior care as she did here in the hospital. She will follow a regular diet. The audie will stay in place. I will see her back in my office in 7 to 10 days to remove the audie. She is welcome to be full bearing and shower and bathe as usual. She can perform her activities of daily living including walking up and down stairs. At this point, she does not need narcotics. She can use Tylenol or ibuprofen as needed for pain. She has expressed understanding and agrees above plan. Marilyn Rodriguez MD [facility]/MODL /[id number] Electronically Signed By: MARILYN RODRIGUEZ MD 07/13/22 0720 PATIENT NAME: LESLEY ARELLANO DISCHARGE SUMMARY DATE OF : 47 REPORT #: [id number] PHYSICIAN: MARILYN RODRIGUEZ MD PCP: BRANDON SHARIF MD REPORT IS CONFIDENTIAL AND NOT TO BE RELEASED WITHOUT AUTHORIZATION [facility] [address] [place], [place] [address] Signed cc: MD Brandon Hernandez MD Copies: MARILYN RODRIGUEZ MD, ROBERT D DMD ~ Electronically Signed By: MARILYN RODRIGUEZ MD 07/13/22 0720 PATIENT NAME: LESLEY ARELLANO DISCHARGE SUMMARY DATE OF : 47 REPORT #: [id number] PHYSICIAN: MARILYN RODRIGUEZ MD PCP: BRANDON SHARIF MD REPORT IS CONFIDENTIAL AND NOT TO BE RELEASED WITHOUT AUTHORIZATION
== END 2022-07-12 12:45 | DRG 331 ==
LOC: DSVR 07-07 09:08 → MS 07-07 09:08
PROVIDERS: ADMIT Colon & Rectal Surgery; ATTEND Colon & Rectal Surgery
PROC: 0DBF0ZZ Excision of Right Large Intestine, Open Approach (ICD-10-PCS; principal; 2022-07-07 11:35)
DX: C18.0 Malignant neoplasm of cecum (principal); Z20.822 Contact with and (suspected) exposure to COVID-19; E87.6 Hypokalemia; E83.42 Hypomagnesemia; E83.39 Other disorders of phosphorus metabolism; D50.9 Iron deficiency anemia, unspecified; K21.9 Gastro-esophageal reflux disease without esophagitis; G89.29 Other chronic pain; E55.9 Vitamin D deficiency, unspecified; E78.5 Hyperlipidemia, unspecified; I10 Essential (primary) hypertension; G40.909 Epilepsy, unspecified, not intractable, without status epilepticus; I25.10 Atherosclerotic heart disease of native coronary artery without angina pectoris; H35.30 Unspecified macular degeneration; E03.9 Hypothyroidism, unspecified; Z96.642 Presence of left artificial hip joint; Z90.49 Acquired absence of other specified parts of digestive tract; Z98.890 Other specified postprocedural states; Z79.899 Other long term (current) drug therapy
CPT/HCPCS: 00840; 36415; 76942; 80048; 83735; 84100; 85025; 88309; 97110; 97116; 97162; A9270; C9113; C9803; J0690; J1170; J1650; J3010; J3475; J3480; J7060; J7121; U0003

== ENCOUNTER 2023-02-13 22:35 | Inpatient (IN) | payer MEDICARE ==
[~2023-02-13] VITALS: Ht 165.1 cm; Wt 104.0 kg
--- OUTSIDE RECORDS SUMMARY | ~2023-02-13 | XMS | Continuity of Care Document ---
Demographics + + + | Address | [address] | | | [place] [address] | + + + | Preferred Language | Unknown | + + + | Marital Status | | + + + | Alevism Affiliation | Unknown | + + + | Race | White | + + + | Ethnic Group | Unknown | + + + Author + + + | Author | [facility] | + + + | Organization | [facility] | + + + | Address | [address] | | | [place] [address] | + + + | Phone | | + + + Care Team Providers + + + + | Care Development And Planning Engineer Name | Role | Phone | + + + + Unavailable | Unavailable | + + + + Allergies No information. Encounters No information. Functional Status No information. Immunizations No information. Medications No information. Problems + + + + | date | description | facility | + + + + | 2022-06-08 14:36 | ANEMIA, UNSPECIFIED | [facility] | + + + + | 2022-06-08 14:36 | EPILEPSY, UNSP, NOT | [facility] | | | INTRACTABLE, WITHOUT STATUS | | | | EP | | + + + + | 2022-06-08 14:36 | Essential (primary) | [facility] | | | hypertension | | + + + + | 2022-06-08 14:36 | OLD MYOCARDIAL INFARCTION | [facility] | + + + + | 2022-06-08 14:36 | GASTRO-ESOPHAGEAL REFLUX | [facility] | | | 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 | | + + + + | 2022-06-08 14:36 | DISEASE OF INTESTINE, | [facility] | | | UNSPECIFIED | | + + + + | 2022-06-08 14:36 | OTHER ARMATURE STRAIGHTENER (CURRENT) | [facility] | | | DRUG THERAPY | | + + + + | 2022-06-08 14:36 | PERSONAL HISTORY OF | [facility] | | | NICOTINE DEPENDENCE | | + + + + | 2022-06-08 14:36 | ALLERGY STATUS TO | [facility] | | | ANALGESIC AGENT STATUS | | + + + + | 2022-06-25 07:50 | UNSP INTESTNL OBST, UNSP | [facility] | | | TO PARTIAL VERSUS | | | | COMPLETE OBST | | + + + + | 2022-07-05 10:00 | MALIGNANT NEOPLASM OF | [facility] | | | COLON, UNSPECIFIED | | + + + + | 2022-07-05 10:00 | MORBID (SEVERE) OBESITY | [facility] | | | DUE TO EXCESS CALORIES | | + + + + | 2022-07-05 10:00 | Essential (primary) | [facility] | | | hypertension | | + + + + | 2022-07-05 10:00 | OLD MYOCARDIAL INFARCTION | [facility] | + + + + | 2022-07-05 10:00 | ENCOUNTER FOR OTHER | [facility] | | | PREPROCEDURAL EXAMINATION | | + + + + | 2022-07-07 09:08 | MALIGNANT NEOPLASM OF | [facility] | | | CECUM | | + + + + | 2022-07-07 09:08 | MALIGNANT NEOPLASM OF | [facility] | | | COLON, UNSPECIFIED | | + + + + | 2022-07-07 09:08 | IRON DEFICIENCY ANEMIA, | [facility] | | | UNSPECIFIED | | + + + + | 2022-07-07 09:08 | HYPOTHYROIDISM, | [facility] | | | UNSPECIFIED | | + + + + | 2022-07-07 09:08 | VITAMIN D DEFICIENCY, | [facility] | | | UNSPECIFIED | | + + + + | 2022-07-07 09:08 | HYPERLIPIDEMIA, | [facility] | | | UNSPECIFIED | | + + + + | 2022-07-07 09:08 | 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 | | + + + + | 2022-07-07 09:08 | HYPOMAGNESEMIA | [facility] | + + + + | 2022-07-07 09:08 | HYPOKALEMIA | [facility] | + + + + | 2022-07-07 09:08 | EPILEPSY, UNSP, NOT | [facility] | | | INTRACTABLE, WITHOUT STATUS | | | | EP | | + + + + | 2022-07-07 09:08 | OTHER CHRONIC PAIN | [facility] | + + + + | 2022-07-07 09:08 | 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 | | + + + + | 2022-07-07 09:08 | Essential (primary) | [facility] | | | hypertension | | + + + + | 2022-07-07 09:08 | 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 | | + + + + | 2022-07-07 09:08 | GASTRO-ESOPHAGEAL REFLUX | [facility] | | | 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 | | + + + + | 2022-07-07 09:08 | OTHER SNF (CURRENT) | [facility] | | | DRUG THERAPY | | + + + + | 2022-07-07 09:08 | ACQUIRED ABSENCE OF OTHER | [facility] | | | SPECIFIED PARTS OF DIGES | | + + + + | 2022-07-07 09:08 | 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 Results/Labs No information. Social History No information. Vital Signs No information."
--- OUTSIDE RECORDS SUMMARY | ~2023-02-13 | XMS | Continuity of Care Document ---
Demographics + + + | Address | [address] | | | [place] [address] | + + + | Preferred Language | Unknown | + + + | Marital Status | | + + + | Anabaptist Affiliation | Unknown | + + + | Race | White | + + + | Ethnic Group | Unknown | + + + Author + + + | Author | [facility] | + + + | Organization | [facility] | + + + | Address | [address] | | | [place] [address] | + + + | Phone | | + + + Care Team Providers + + + + | Care Fisher Lobster Name | Role | Phone | + [...] + + | 2022-06-08 14:36 | OTHER CLAIMS ASSISTANT (CURRENT) | [facility] | | | DRUG [...] DISEASE OF | [facility] | | | [place] CORONARY ARTERY W/O | | + + + + | 2022-07-07 09:08 | GASTRO-ESOPHAGEAL REFLUX | [facility] | | | 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 | | + + + + | 2022-07-07 09:08 | OTHER CUSTODIAL (CURRENT) | [facility] | | | DRUG [...]
--- OUTSIDE RECORDS SUMMARY | ~2023-02-13 | XMS | Continuity of Care Document ---
Demographics + + + | Address | [address] | | | [place] [address] | + + + | Preferred Language | Unknown | + + + | Marital Status | | + + + | Roman Catholic Affiliation | Unknown | + + + | Race | White | + + + | Ethnic Group | Unknown | + + + Author + + + | Author | [facility] | + + + | Organization | [facility] | + + + | Address | [address] | | | [place] [address] | + + + | Phone | | + + + Care Team Providers + + + + | Care Box Truck Driver Name | Role | Phone | + [...] + + | 2022-06-08 14:36 | OTHER KNOCKDOWN WORKER (CURRENT) | [facility] | | | DRUG [...] DISEASE OF | [facility] | | | [place] CORONARY ARTERY W/O | | + + + + | 2022-07-07 09:08 | GASTRO-ESOPHAGEAL REFLUX | [facility] | | | 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 | | + + + + | 2022-07-07 09:08 | OTHER FPC (CURRENT) | [facility] | | | DRUG [...]
[~2023-02-13 22:35] MED LIST changes: +CLEARLAX119 GM PO; +FERROUS GLUCON324 M1 PO; +OMEPRAZOLE40 MG PO; +VITAMIN D21250 MCG PO
[2023-02-13 22:55] LABS: BASOPHILS 0.9 % (0-2); EOSINOPHILS 6.3 % (0-6); HEMATOCRIT 31.2 % (35.0-50.0); HEMOGLOBIN 10.8 g/dL (12.0-18.0); LYMPHOCYTES 36.1 % (24-44); MCH 31.2 (27-36); MCHC 34.7 g/dl (30-36); MONOCYTES 6.8 % (0-12); NEUTROPHILS 49.9 % (39-80); PLATELET COUNT 151 K/uL (140-440); RBC 3.46 M/ul (4.3-5.7); RDW 14.6 (10.5-15.0)
[2023-02-13 23:15] LABS: BILIRUBIN, URINE NEGATIVE (negative); BLOOD/HGB, URINE NEGATIVE (Negative); KETONE, URINE NEGATIVE (Negative); LEUK ESTERASE, URINE NEGATIVE (negative); NITRITE, URINE NEGATIVE (negative); PH, URINE 7.5 (5-7)
[2023-02-13 23:17] LABS: ALBUMIN 3.6 g/dL (3.4-5.0); ALBUMIN/GLOBULIN RATIO 1.03 (1.1-2.4); ALKALINE PHOSPHATASE 89 U/L (46-116); ALT (SGPT) 19 U/L (14-59); ANION GAP 11.3 (7-21); AST (SGOT) 23 U/L (15-37); BILIRUBIN, TOTAL 0.5 ng/dL (0.2-1.0); BUN/CREATININE RATIO 12.82 (6.0-28.6); CALCIUM 9.3 mg/dL (8.5-10.1); CARBON DIOXIDE 29 mmol/L (21-32); CHLORIDE 100 mmol/L (98-107); CREATININE, SERUM 0.78 mg/dL (0.55-1.02); GLOMERULAR FILTRATION RATE,EST 79 mL/min (>60); MAGNESIUM 1.6 mg/dL (1.8-2.4); POTASSIUM 3.3 mmol/L (3.5-5.1); PROTEIN, TOTAL 7.1 g/dL (6.4-8.2); UREA NITROGEN 10 mg/dL (7-18)
[2023-02-14 00:16] VITALS: BP 166/78
--- NOTE | 2023-02-14 01:20 | NUR ---
PT TO FLOOR WITH ED RN VIA STRETCHER AT APPROX 0015. 3PA WITH SLIDER SHEET TO TRANSFER PT FROM STRETCHER TO BED. PT ALERT AND ORIENTED. REPORT RECEIVED. MANAGER BUSINESS MANAGEMENT COMPLETED ADMISSION HX. PT UP TO BSC WITH 1PA AND FWW TO VOID AND HAVE LARGE LIQUID BM. PT ABLE TO DO OWN HIRA CARE. GAIT STEADY. BACK TO BED, JADEN WELL. DUE TO POOR VISION PT REQUIRES FREQUENT CUEING. ASSISTED TO REPOSITION. 2L/NC IN PLACE. SpO2 HIGH 90'S. HR 60'S. CPOX IN PLACE. PT ORIENTED TO ROOM AND NURSE CALL LIGHT. NO FURTHER NEEDS AT THIS TIME. BED ALARM FOR SAFETY. CALL LIGHT IN REACH.
--- NOTE | 2023-02-14 03:00 | NUR ---
PT RESTING IN BED WITH EYES CLOSED. RESPIRATIONS EVEN. SpO2 96% WITH 2L/NC IN PLACE. HR 60'S. BED ALARM FOR SAEFTY. CALL LIGHT IN REACH.
[2023-02-14 05:13] VITALS: BP 147/61
[2023-02-14 05:25] LABS: BASOPHILS 0.4 % (0-2); EOSINOPHILS 7.5 % (0-6); HEMATOCRIT 30.2 % (35.0-50.0); HEMOGLOBIN 10.2 g/dL (12.0-18.0); LYMPHOCYTES 33.9 % (24-44); MCH 30.8 (27-36); MCHC 33.8 g/dl (30-36); MCV 91.1 fl (81-99); MONOCYTES 7.7 % (0-12); NEUTROPHILS 50.5 % (39-80); PLATELET COUNT 139 K/uL (140-440); RBC 3.32 M/ul (4.3-5.7); RDW 14.6 (10.5-15.0)
[2023-02-14 05:43] LABS: ALBUMIN 3.2 g/dL (3.4-5.0); ALBUMIN/GLOBULIN RATIO 1.03 (1.1-2.4); ALKALINE PHOSPHATASE 82 U/L (46-116); ALT (SGPT) 18 U/L (14-59); ANION GAP 8.5 (7-21); AST (SGOT) 17 U/L (15-37); BILIRUBIN, TOTAL 0.4 ng/dL (0.2-1.0); BUN/CREATININE RATIO 13.43 (6.0-28.6); CALCIUM 8.8 mg/dL (8.5-10.1); CARBON DIOXIDE 31 mmol/L (21-32); CHLORIDE 104 mmol/L (98-107); CREATININE, SERUM 0.67 mg/dL (0.55-1.02); GLOMERULAR FILTRATION RATE,EST 91 mL/min (>60); POTASSIUM 3.5 mmol/L (3.5-5.1); PROTEIN, TOTAL 6.3 g/dL (6.4-8.2); UREA NITROGEN 9 mg/dL (7-18)
--- NOTE | 2023-02-14 05:54 | NUR ---
PT RESTING WITH EYES CLOSED. AWAKENS EASILY. VS AND I&O OBTAINED. PT UP TO BSC WITH FWW AND 1PA TO VOID. GAIT STEADY. PT ABLE TO DO OWN HIRA CARE. BACK TO BED, JADEN WELL. PT REPORTS SHE IS RESTING COMFORTABLY. NO FURTHER NEEDS.
--- NOTE | 2023-02-14 06:01 | EKG ---
[facility] [address] [facility] [place] [address] Signed Normal sinus rhythm Moderate voltage criteria for LVH, may be normal variant ( R in aVL , [place] product ) T wave inversion in V1 Borderline ECG When compared with ECG of 05-JUL-2022 10:39, T wave inversion no longer evident in Inferior leads Nonspecific T wave abnormality has replaced inverted T waves in Anterior leads Confirmed by SIOMARA BOLAND MD ([id number]) on 02/14/2023 6:01:19 AM Electronically Signed By: SIOMARA BOLAND 02/14/23 0601 PATIENT NAME: GILLES ARELLANO Electrocardiogram DATE OF : 47 PHYSICIAN: SIOMARA BOLAND REPORT #: [id number] REPORT IS CONFIDENTIAL AND NOT TO BE RELEASED WITHOUT AUTHORIZATION
--- NOTE | 2023-02-14 07:14 | NUR ---
recieved report from nightshift nurse. patient is currently resting. no cares needed at this time
--- NOTE | 2023-02-14 08:33 | NUR ---
PATIENT UP TO CHAIR FOR BREAKFAST, 1PA FWW. VISITOR IN ROOM. CALL LIGHT IN REACH. NO FURHTER NEEDS AT THIS TIME,
--- NOTE | 2023-02-14 09:18 | NUR ---
SITTING UP IN CHAIR, EATING. STATES SHE LIVES IN A DUPLEX WITH RAMP TO GET IN, WITH SON, DELMER. DELMER ACTS PATIENT'S PAID CAREGIVER. PATIENT STATES SHE USES A 4 WHEELED WALKER TO GET AROUND HER HOME BUT HAS HAD FREQUENT FALLS, 7 IN A MONTH. STATES SHE USES OXYGEN THROUGH [facility]. HAS A TOILET RISER, COMMODE, SHOWER CHAIR, AND GRAB BARS IN BATHROOM. PCP, DR. SHARIF, HAS BEEN WORKING TO GET A PATIENT POWER CHAIR DUE TO HER FREQUENT FALLS. HAS BEEN MEASURED AND IS AWAITING DELIVERY OF CHAIR. SON, EDGARDO, HAS FOOD STAMPS. PATIENT DOES NOT. STATES SHE USED TO GET MEALS ON WHEELS, BUT THEY QUIT COMING, UNSURE WHY. NO PERSONAL MODE OF TRANSPORTATION, USES BUS TO GET TO [employer] FOR FOOD AND MEDS. USES A [employer] POWER CHAIR WHEN SHOPPING. STATES SHE HAS BEEN GETTING PROGRESSIVELY WEAKER. OFFERED TO ASSIST WITH GETTING HOME HEALTH PT TO HELP IMPROVE STRENGTH. STATES SHE PREFERS TO HAVE [facility] FOR PT. WILL DISCUSS WITH PHYSICIAN AND SEND REFERRAL TO [facility]. PATIENT WOULD LIKE TO HAVE MEALS ON WHEELS AGAIN IF POSSIBLE WELL. STATES SHE KNOWS SHE COULD EAT MORE IF SHE HAD MORE FOOD.
[2023-02-14 10:29] VITALS: BP 147/67
--- NOTE | 2023-02-14 10:34 | NUR ---
pt states that she is having difficulty with phelgm and states that she was described a nasal spray fluticasone propionate that she is requesting spoke to and he said it was ok for her to have. will be putting in order now. no other cares are needed at this time call ight within reach
[2023-02-14] MEDS ORDERED: FLUTICASONE PRO16 GM NAS (10:41)
[2023-02-14] MEDS ORDERED: IRON325 M1 PO (10:42)
[2023-02-14] MEDS ORDERED: TRIAMCINOLONE A15 G3 TOP (10:42)
--- NOTE | 2023-02-14 10:42 | NUR ---
MED REC COMPLETE
--- NOTE | 2023-02-14 11:15 | NUR ---
PT TOOK HER NASAL MEDICATION AND THEN TALKKING ABOUT HER LIFE. SHE SAID SHE JUST NEEDED SOMEONE TO TALK TO. I ASKED IF THERE WAS ANYTHING SHE NEEDED AND PT STATED NO. NO THER CARES NEEDED AT THIS TIME. CALL LIGHT WITHIN REACH
--- NOTE | 2023-02-14 11:21 | NUR ---
MESSAGE LEFT FOR AALIYAH TO REFER A PATIENT FOR MEALS ON WHEELS.
--- NOTE | 2023-02-14 14:05 | NUR ---
Spoke with Madhavi Pastrana, number for son provided as patient's number not working.
[2023-02-14 14:36] VITALS: BP 132/72
--- NOTE | 2023-02-14 16:09 | NUR ---
PT IS CURRENTLY SLEEPING. PT SEEMS VERY DROWSY. WAS ABLE TO RESPOND TO QUESTIONS AND ALERT AND ORIENTED X3. NO OTHER CARES NEEDED AT THIS TIME CALL LIGHT WITHIN REACH
--- NOTE | 2023-02-14 17:15 | NUR ---
PT IS CURRENTLY EATING. PT WAS INFORMED THAT DAUGHTER CALLED BUT WE WERENT ABLE TO GIVE OUT ANY INFORMATION SINCE SHE WASN'T ON THE AUTHORIZED PERSONEL SHEET. SHE WILL CALL HER AFTER HER MEAL. NO OTHER CARES NEEDED AT THIS TIME. CALL LIGHT WITHIN REACH
[2023-02-14 18:29] VITALS: BP 145/92
--- NOTE | 2023-02-14 19:25 | NUR ---
REPORT RECEIVED FROM DAY SHIFT RN. PT LYING IN BED ALERT AND ORIENTED. DENIES NEEDS. WHITE BOARD UPDATED. CALL LIGHT IN REACH.
--- NOTE | 2023-02-14 21:55 | NUR ---
CALL LIGHT ANSWERED. 1 PA TO BATHROOM USING WALKER. PATIENT HAD LOOSE BM. VOIDED 300ML YELLOW URINE. PATIENT IS BACK IN BED. V/S AND I&O'S COMPLETED. PRIMARY RN WAS WITH PATIENT.
[2023-02-14 21:56] VITALS: BP 162/71
--- NOTE | 2023-02-14 22:21 | NUR ---
EVENING ASSESSMENT COMPLETE. SCHEDULED MEDS ADMIN PER EMAR. PT DENIES PAIN OR NAUSEA. UP TO BR WITH STAPLE SHEAR OPERATOR ASSIST. GAIT STEADY. BACK TO BED, JADEN WELL. DENIES DIZZINESS WITH AMBULATION. REPORTS BLURRED VISION " A LITTLE WORSE" THAN BASELINE. CMS INTACT. CONSTRUCTION SITE CROSSING GUARD STRENGTH EQUAL BILAT. IV IN LEFT AC NOT PATENT. DC'D WNL. TIP INTACT. NEW IV PLACED IN RIGHT FOREARM WITH ONE ATTEMPT. PT JADEN WELL. CPOX IN PLACE. CHRONIC 2L/NC AT NIGHT PLACED. PT DENIES QUESTIONS OR CONCERNS. CALL LIGHT IN REACH. BED ALARM FOR SAFETY.
--- NOTE | 2023-02-15 00:42 | NUR ---
PT RESTING IN BED WITH EYES CLOSED. RESPIRATIONS EVEN. SpO2 98% WITH 2L/NC IN PLACE. HR 60'S. BED ALARM FOR SAFETY. CALL LIGHT IN REACH.
--- NOTE | 2023-02-15 03:09 | NUR ---
PT RESTING WITH EYES CLOSED. HOB ELEVATED. RR EVEN AND NON LABORED. SpO2 MID 90'S WITH 2L/NC IN PLACE. HR 60'S. BED ALARM FOR SAFETY. CALL LIGHT IN REACH.
[2023-02-15 04:26] VITALS: BP 132/67
--- NOTE | 2023-02-15 04:30 | NUR ---
CALL LIGHT ANSWERED. PT UP TO BR WITH FWW AND SBA TO VOID. GAIT STEADY. PT ABLE TO DO OWN HIRA CARE. BACK TO BED, JADEN WELL. DENIES DIZZINESS WITH AMB. VS AND I&O OBTAINED. PT REPORTS 4/10 BACK PAIN. PRN FOR PAIN ADMIN PER EMAR. NO FURTHER NEEDS. CALL LIGHT IN REACH.
[2023-02-15 05:27] LABS: BASOPHILS 0.3 % (0-2); EOSINOPHILS 7.5 % (0-6); HEMOGLOBIN 10.3 g/dL (12.0-18.0); LYMPHOCYTES 33.7 % (24-44); MCH 30.9 (27-36); MCHC 34.2 g/dl (30-36); MCV 90.3 fl (81-99); MONOCYTES 6.9 % (0-12); NEUTROPHILS 51.6 % (39-80); PLATELET COUNT 135 K/uL (140-440); RBC 3.32 M/ul (4.3-5.7); RDW 14.6 (10.5-15.0)
[2023-02-15 05:39] LABS: ANION GAP 10.6 (7-21); BUN/CREATININE RATIO 17.46 (6.0-28.6); CALCIUM 8.9 mg/dL (8.5-10.1); CREATININE, SERUM 0.63 mg/dL (0.55-1.02); POTASSIUM 3.6 mmol/L (3.5-5.1)
--- NOTE | 2023-02-15 07:00 | NUR ---
RECIEVED REPORT FROM NIGHTSHIFT NURSE. PT IS CURRENTLY IN BED ALERT AND ORIENTED. ASKED IF SHE NEEDED ANYTHING AND SHE STATED NO. nO OTHER CARES NEEDED AT THIS TIME. CALL LIGHT WITHIN REACH
--- NOTE | 2023-02-15 08:21 | NUR ---
pt resting in bed. pt up to br sba w fww. pt able to void by self and clean self. pt up to chair now. pt on phone. pt sat up for meal. linens changed. cpox back on. pt on ra now. pt has no needs. call light within reach
--- NOTE | 2023-02-15 09:07 | NUR ---
NOTIFIED OF MEALS ON WHEELS REFERRAL AND TO EXPECT CALL. ASSISTED TO CALL HER BALLOON SANDER AT THIS TIME. PATIENT ANXIOUS, STATES SHE DOES NOT FEEL WELL WHEN HER PHENYTOIN LEVELS ARE LOWER. DENIES OTHER NEEDS AT THIS TIME. CALL LIGHT IN REACH, CONTINUOUS PULSE OX IN PLACE.
--- NOTE | 2023-02-15 09:27 | NUR ---
pt call light answered. pt asked if her son would be able to visit. pt let know that her son is more than welcome to come visit. pt provided cup of coffee. pt still working on meal. no needs. call light within reach
--- NOTE | 2023-02-15 09:50 | NUR ---
PT SITTING IN CHAIR STRUGGLING TO TURN OFF TELEVISION. ASSISTED WITH TELEVISION CONTROL. EXERCISED MINISTRY OF PRESENCE PT TALKED OF ZENIA JOURNEY AND EXPERIENCES OF GOD IN LIFE. PT CONSENTED TO PRAYER. GAVE THANKS FOR HEALING. PRAYED FOR ONGOING HEALING AND AWARENESS OF DIVINE PRESENCE. PT ASKED FOR BREAKFAST TRAY TO BE MOVED AND FOR MORE SUGAR FOR COFFEE. I MOVED TRAY TO NEAR DOOR AND VERIFIED WITH PILAR HERNANDEZ THAN SUGAR WAS APPROPRIATE FOR PT DIET. PROVIDED SUGAR REQUESTED.
[2023-02-15 09:56] VITALS: BP 147/65
--- NOTE | 2023-02-15 11:37 | NUR ---
PT COMPLAINS OF NAUSEA AND A HEADACHE ON A SCLE OF 4. ASKED PATIENT IF SHE WANTED ANY MEDICATIONS TO HELP. SHE STATED SHE WOULD LIKE THAT PATIENT RECIEVED ZOFRAN AND TYLENOL. PT IS CURRENTLY SITTING UP IN CHAIR 02 STAT IS AT 100 AND PULSE IS 60. NO OTHER CARES NEEDED AT THIS TIME CALL LIGHT WITHIN REACH
--- NOTE | 2023-02-15 13:00 | NUR ---
pt call light answered. pt req wallet be put back in lock box in room. wallet put back. pt stated w her acid reflux she cannot have red sauce. pt req a sandwich or salad. pt provided sandwich box. pt informed we can help her order food so she can decide what shed like for dinner. pt ok'd. no further needs. son at bedside. call light within reach
--- NOTE | 2023-02-15 14:28 | NUR ---
PT SITTING UP IN CHAIR. CALL LIGHT IN REACH. RATES PAIN 3-4\10.
--- NOTE | 2023-02-15 15:52 | NUR ---
PT UP TO RESTROOM. SBA FWW. PT BACK TO CHAIR. PILLOWS ADJUSTED. TALKED ABOUT HER FOR A BIT.
--- NOTE | 2023-02-15 18:46 | NUR ---
PT VISITORS LEFT. ADMINISTERED SCHEDULED MED. PT STILL TALKING ON PHONE. STILL PICKING AT DINNER.
--- NOTE | 2023-02-15 19:29 | NUR ---
REPORT RECEIVED FROM DAY SHIFT RN. PT UP IN BR TO VOID AND HAVE SMALL LOOSE BM. PT ABLE TO DO OWN HIRA CARE. BACK TO BED WITH FWW. GAIT STEADY. NO FURTHER NEEDS AT THIS TIME. WHITE BOARD UPDATED. CALL LIGHT IN REACH.
[2023-02-15 20:29] VITALS: BP 160/62
--- NOTE | 2023-02-15 20:47 | NUR ---
EVENING ASSESSMENT COMPLETE. SCHEDULED MEDS ADMIN PER EMAR. PT DENIES PAIN OR NAUSEA. DENIES FEELING DIZZY. O2 2L/NC PLACED FOR SLEEPING. CPOX IN PLACE. PT ABLE TO REPOSITION SELF IN BED. PT AGREES SHE IS COMFORTABLE. NO FURTHER NEEDS AT THIS TIME. CALL LIGHT IN REACH. BED ALARM FOR SAFETY.
--- NOTE | 2023-02-15 22:03 | NUR ---
TELEPHONE ORDER RECEIVED FOR MORNING LABS VERIFIED WITH READBACK METHOD.
--- NOTE | 2023-02-15 23:08 | NUR ---
PT. CALLED NURSES STATION REQUESTING ASSISTANCE TO BATHROOM. PT. ASSISTED TO BATHROOM. PT. NOW BACK IN BED, PULSE OX BACK IN PLACE, I/O WRITTEN ON CHART. FRESH ICE WATER PROVIDED. BED ALARM SET AND CALL LIGHT LEFT WITHIN REACH. NO OTHER NEEDS AT THIS TIME.
--- NOTE | 2023-02-16 02:08 | NUR ---
PT RESTING IN BED WITH EYES CLOSED. RESPIRATIONS EVEN. HOB ELEVATED. SpO2 99% ON 2L/NC. HR 70'S. BED ALARM IN PLACE. CALL LIGHT IN REACH.
--- NOTE | 2023-02-16 04:22 | NUR ---
PT IN BED WITH EYES CLOSED. RESPIRATIONS EVEN AND NON LABORED. SpO2 98% WITH 2L/NC IN PLACE. HR 60'S.
[2023-02-16 04:51] VITALS: BP 163/66
--- NOTE | 2023-02-16 05:01 | NUR ---
CALL LIGHT ANSWERED. PT UP TO BR WITH FWW AND SBA TO VOID. GAIT STEADY. BACK TO BED, JADEN WELL. PT DENIES DIZZINESS, REPORTS FEELING "SLEEPY." DENIES PAIN OR NAUSEA. VS AND I&O OBTAINED. NO FURTHER NEEDS. BED ALARM FOR SAFETY. CALL LIGHT IN REACH.
[2023-02-16 05:30] LABS: BASOPHILS 0.3 % (0-2); EOSINOPHILS 6.3 % (0-6); HEMATOCRIT 31.8 % (35.0-50.0); HEMOGLOBIN 10.9 g/dL (12.0-18.0); LYMPHOCYTES 25.4 % (24-44); MCHC 34.3 g/dl (30-36); MCV 90.4 fl (81-99); MONOCYTES 6.4 % (0-12); NEUTROPHILS 61.6 % (39-80); PLATELET COUNT 139 K/uL (140-440); RBC 3.52 M/ul (4.3-5.7); RDW 15.1 (10.5-15.0)
[2023-02-16 05:46] LABS: ANION GAP 9.7 (7-21); BUN/CREATININE RATIO 15.94 (6.0-28.6); CALCIUM 8.8 mg/dL (8.5-10.1); CARBON DIOXIDE 30 mmol/L (21-32); CHLORIDE 104 mmol/L (98-107); CREATININE, SERUM 0.69 mg/dL (0.55-1.02); GLOMERULAR FILTRATION RATE,EST 90 mL/min (>60); POTASSIUM 3.7 mmol/L (3.5-5.1); UREA NITROGEN 11 mg/dL (7-18)
--- NOTE | 2023-02-16 07:13 | NUR ---
GOT REPORT FROM BOBBIN INSPECTOR NURSE.
--- NOTE | 2023-02-16 07:42 | NUR ---
PT REQUESTS ASSIST TO BATHROOM. PT ABLE TO REPOSITION SELF TO SITTING ON THE EDGE OF THE BED. PT AMBULATES TO THE BATHROOM WITH WALKER AND 1 PERSON STANDBY ASSIST. PT VOIDS CLEAR, YELLOW URINE. BRIEF CHANGED. PT TO SINK, WASHES FACE AND BRUSHES HER TEETH AND DENTURES. PT TO RECLINER, WARM BLANKETS PROVIDED. COFFEE PROVIDED. BEDSIDE TABLE IN REACH WITH LUIS. CALL LIGHT IN REACH. [address] VIA MA. NO FURTHER REQUESTS AT THIS TIME.
[2023-02-16 08:00] VITALS: BP 147/61
--- NOTE | 2023-02-16 08:51 | NUR ---
PT O2 SAT 100% WITH 2LT O2 VIA NC, PT STATES SHE ONLY USES O2 AT NIGHT AT HOME AND REQUESTS TO REMOVE O2. O2 REMOVED. CONTINUOUS PULSE OXIMETER IN PLACE. PT MAINTAINS O2 SATS >94%. PT REPORTS SORE THROAT, REQUESTS ASSISTANCE.
--- NOTE | 2023-02-16 09:42 | NUR ---
New pulse ox sticker applied. Old one got wet and was sliding off of patients finger. Patient ana rosa not on oxygen and running 99-100 on her continious pulse ox readings. Patient states she only wears it at night at home. She also writes for the residential. This nurse sat and listened to patient tell me about what she likes to write about.
--- NOTE | 2023-02-16 10:00 | NUR ---
Spoke with Lesley. [place]. Cont. to use 02 at home. Becomes tearful speaking about her recently spouse. She request assist getting a mechanical wc. She states her pcp was working on this, but does not feel anything is happening. I let her know she has to go through her pcp. She will be assisted by a therapist as the wc will be fitted to her. I let her know [facility] has will lend chairs at times. I will give her their sheet. Her son is currently living with her and providing care. He also helps her shop. She denies other needs.
--- NOTE | 2023-02-16 10:15 | NUR ---
Dr. Jacome notified of Pt report of sore throat and low grade temp of 99.4.
--- NOTE | 2023-02-16 10:35 | NUR ---
both nares swabbed without complication. sample taken to lab.
--- NOTE | 2023-02-16 10:45 | NUR ---
PT USES CALL LIGHT TO REQUEST ASSIST TO BATHROOM. PT AMBULATES TO BATHROOM WITH WALKER AND 1 PERSON STANDBY ASSIST. PT VOIDS CLEAR YELLOW URINE AND HAS LOOSE BM. PT BACK TO RECLINER. RT IN TO ADMINISTER NASAL SWAB TEST FOR COVID.
--- NOTE | 2023-02-16 11:21 | NUR ---
PT AMBULATES TO BATHROOM WITH FWW AND 1 PERSON STANDBY ASSIST. PT HAS A LOOSE BM. BACK TO RECLINER. TOLERATES ACTIVITY WELL. WARM BLANKETS PROVIDED. FRESH ICE WATER PROVIDED. NO FURTHER REQUESTS AT THIS TIME.
[2023-02-16 11:26] LABS: INFLUENZA B NAA NEGATIVE (NEGATIVE); RESPIRATORY SYNCYTIAL VIR NAA NEGATIVE (NEGATIVE)
--- NOTE | 2023-02-16 11:42 | NUR ---
PT COVID POSITIVE. AEROSOL PRECAUTIONS PUT INTO PLACE.
[2023-02-16 14:11] VITALS: BP 157/74
--- NOTE | 2023-02-16 14:30 | NUR ---
Into take patients vitals. Patient in chair resting but wakes up when into room. Patient would like to get up to use the restroom and get into bed to sleep for a little bit. Patient has elevated temp. Tylenol given. Patient in bed now wit curtain down.
--- NOTE | 2023-02-16 15:27 | NUR ---
Into check on patient. Patient laying in bed texting her son. She denies any cares at this time.
[2023-02-16 17:27] VITALS: BP 158/59
--- NOTE | 2023-02-16 18:55 | NUR ---
PT RESTING IN BED, CALL LIGHT AND BELONGINGS IN REACH. BED IN LOW POSITION, WHEELS LOCKED. NO REQUESTS AT THIS TIME.
--- NOTE | 2023-02-16 19:03 | NUR ---
REPORT RECEIVED FROM FELISHA. PT IN ROOM NO NEEDS.
[2023-02-16 19:32] VITALS: BP 170/79
--- NOTE | 2023-02-16 19:41 | NUR ---
Patient used call light for assistance to the restroom. Took the patient a minute to sit up to edge of bed but walked steady with walker into bathroom. Patient back to bed, took vitals, refilled her ice water. Nothing else is needed at this time. Call light within reach and bed alarm set.
--- NOTE | 2023-02-16 21:15 | NUR ---
ASSESSMENT COMPLETE. ROOM TEMP TURNED TO 75, TURNED DOWN PT HAD MULT BLANKETS ON HER, HAS HAD FEVER EARLIER IN THE DAY.
--- NOTE | 2023-02-16 22:45 | NUR ---
Patient did not use call light and tried climbing out of bed to use restroom, bed alarm alerting staff. I went in room as she was trying to sit up at side of bed and and helped her move feet out of bed but she was weak and could not set herself up. I suggested she use the bedside commmode instead of walking into restroom with walker. Brought commode to bedside and she was having a difficult time trying to stand to transfer. The nurse came in and assisted me with her transfer. Changed her underwear and put a new gown on. Assisted patient back to bed and pulled up while in bed. Call light is within reach and I also reminded her to use call light when needing to use restroom. Nurse put bed alarm on. Nothing else needed at this time.
--- NOTE | 2023-02-16 22:50 | NUR ---
ASSISTED TELECOMMUNICATIONS REPAIRER WITH PT TO AND FROM BSC. NOTED PT FELT WARM, ROOM WARM, TEMP 100.1. IS GIVEN TO PT, INSTRUCTIONS, PT ABLE TO USE, ROOM TURNED DOWN AGAIN, BLANKETS REMOVED, LEFT SHEET. PT STATED THAT WAS BETTER. INSTRUCTED TO USE CALL LIGHT SO STAFF CAN COME ASSIST HER. STATES SHE IS TIRED.
--- NOTE | 2023-02-17 00:35 | NUR ---
ROUNDED ON PT. LAYING ON BACK, RESP EVEN AND UNLABORED, CPOX MONITOR AT BEDSIDE READING O2 @98 ON 2LNC; HR 72. PT SL STIRRED WHILE RN IN ROOM.
--- NOTE | 2023-02-17 01:10 | NUR ---
PT USED CALL LIGHT FOR TOILETING, ASSIST WITH HELP DESK SUPPORT SPECIALIST TO BSC. ABLE TO TRANSFER WITH LESS ASSISTANCE THIS TIME COMPARED TO THE PREVIOUS. REPEAT TEMP 99.8 ORAL
--- NOTE | 2023-02-17 03:36 | NUR ---
PT CALLED AT 0325 TO USE BATHROOM. ASSISTED OUT OF BED, BUT SBA TO BSC WITH FWW. DENIES DIZZINESS, 2L CONTINUE CPOX READING 100 WHILE UP AND MOVING. VOIDED, WITH LIQUID STOOL, PASSED COPIOUS AMOUNTS OF GAS. BACK TO BED, ASSISTED RIGHT LEG INTO BED, ABLE TO INDEPENDENTLY PUT LEFT IN BED. INDEPENDENTLY ADJUST POSITION TO CENTER OF BED, STATES SHE FEELS GOOD, HAS BEEN SLEEPING. COVERED, BEDALARM PLACED, CALL LIGHT WITHIN REACH.
[2023-02-17 06:14] VITALS: BP 152/65
--- NOTE | 2023-02-17 06:30 | NUR ---
PT CURRENTLY IN BED, RA AFTER USING THE COMMODE NEAR 0615. TYLENOL GIVEN R/T TEMP, BUT AFTER GIVING, PT STATED THAT SHE HAD NO PAIN, EXCEPT HER A LITTLE HEADACHE. SBA WITH TRANSFERS VIA FOOD PRODUCTION SUPERVISOR, PT WAS ABLE TO INDEPENDENTLY MOVE SELF UP IN BED, ONCE HOB FLAT. PERFERS HOB ELEVATED, DRINKS WATER FREQUENTLY WITHOUT PROMPTING. BEDALARM WAS USED, BUT ALARM WENT OFF ONLY ONCE, JUST NEEDED REMINDERS TO USE CALL LIGHT.
--- NOTE | 2023-02-17 07:10 | NUR ---
VERBAL REPORT RECEIVED FROM PILAR HOWARD.
--- NOTE | 2023-02-17 07:35 | NUR ---
PT RESTING WITH EYES CLOSED, IN BED. RESP, EVEN AND UNLABORED.
--- NOTE | 2023-02-17 08:25 | NUR ---
PT AMBULATES TO [facility] WITH WALKER AND 1 PERSON STANDBY ASSIST. PT VOIDS CLEAR, YELLOW URINE AND HAS A BROWN LIQUID BM. MIRALAX HELD THIS AM. PT AMBULATES TO RECLINER. FRESH ICE WATER AND WARM BLANKETS PROVIDED. PHYSICAL ASSESSMENT COMPLETE. BREAKFAST SERVED. PT IN RECLINER EATING, CALL LIGHT AND BELONGINGS IN REACH. O2 REMOVED, PT SATS 94% ON RA, STATES SHE DOES NO USE OXYGEN DURING THE DAY AT HOME, ONLY AT NIGHT. CONTINUOUS PULSE OXIMETER IN PLACE. IV ASSESSED, PATENT, SL IN LEFT HAND.
[2023-02-17 08:47] VITALS: BP 137/59
--- NOTE | 2023-02-17 09:02 | NUR ---
PT REPORTING CONGESTION AND REQUESTS MEDICAITON. ORDERS RECEIVED FORM DR. OSWALD, ORDERS ENTERD, REPEAT BACK PERFORMED. PTS PRIMARY RN UPDATED.
--- NOTE | 2023-02-17 09:32 | NUR ---
MUCINEX RECEIVED FOR PT COMPLAINT OF CONGESTION. NASAL CONGESTION AND DRAINAGE NOTED.
--- NOTE | 2023-02-17 09:50 | NUR ---
PT EXPRESSED TIREDNESS. CONSENTED TO PRAYER. PRAYED FOR HEALING OF BODY AND SPIRIT.
--- NOTE | 2023-02-17 10:00 | NUR ---
Spoke with Lesley. Dr. Jacome just visited with her and plans on pt discharging to home today. IM letter given and pt denies wanting to appeal. She called her son and left a message letting him know she will dc sometime today. Pt states she will call a friend for a ride. Staff will notify me if pt needs transport later.
--- NOTE | 2023-02-17 10:57 | NUR ---
MEDICATION DUE. PT UP TO CHAIR. PT REPORTS CONGESTION HAS IMPROVED WITH MEDICATION. PT DENIES PAIN AND NAUSEA. MEDICAITON GIVEN. PT REPORTS SHE IS CHARGING HER PHONE AND THEN PLANNING TO CALL HER FRIEND TO UPDATE HER ON PLAN OF CARE AND PLAN FOR DISCHARGE. PT DENIES ADDITIONAL REQUESTS OR COMPLAINTS. CALL LIGHT WITHIN REACH. PTS PRIMARY RN UPDATED.
[2023-02-17] MEDS ORDERED: MUCINEX600 MG PO (11:58)
--- NOTE | 2023-02-17 12:06 | NUR ---
PT SITTING UP IN RECLINER. FRESH ICE WATER RECIEVED. MIXED CROP FARMER IN ROOM. PT ON CELL PHONE, LUNCH DELIVERED. CALL LIGHT IN REACH, NO REQUESTS AT THIS TIME.
[2023-02-17 13:18] VITALS: BP 149/52
--- NOTE | 2023-02-17 14:05 | NUR ---
PT DRESSED AND HAS BELONGINGS. IV REMOVED, TIP INTACT, GAUZE AND COBAN DRESSING APPLIED, PT TOLERATED WELL. REVIEWED AND DISCUSSED D/C INSTRUCTIONS. PT TRANSFERRED SELF TO WHEEL CHAIR AND DONNED MASK AND BLANKET. PT ESCORTED TO PRIVATE CAR OF PT'S FRIEND.
== END 2023-02-17 14:05 | disposition home or self-care (01) | DRG 149 ==
LOC: ED 22:35 → MS 22:36
PROVIDERS: Family Medicine; ADMIT Family Medicine; ATTEND Family Medicine
PROC: 8E0ZXY6 Isolation (ICD-10-PCS; principal; 2023-02-16)
DX: R42 Dizziness and giddiness (principal); U07.1 COVID-19; T42.0X5A Adverse effect of hydantoin derivatives, initial encounter; E83.42 Hypomagnesemia; E78.5 Hyperlipidemia, unspecified; G40.909 Epilepsy, unspecified, not intractable, without status epilepticus; I10 Essential (primary) hypertension; G25.81 Restless legs syndrome; R06.82 Tachypnea, not elsewhere classified; I48.91 Unspecified atrial fibrillation; K21.9 Gastro-esophageal reflux disease without esophagitis; H53.8 Other visual disturbances; R29.6 Repeated falls; H35.30 Unspecified macular degeneration; J02.9 Acute pharyngitis, unspecified; Z96.642 Presence of left artificial hip joint; Z98.890 Other specified postprocedural states; I25.2 Old myocardial infarction; Z87.891 Personal history of nicotine dependence; Z79.899 Other long term (current) drug therapy; Z88.8 Allergy status to other drugs, medicaments and biological substances; Z79.02 Long term (current) use of antithrombotics/antiplatelets
CPT/HCPCS: 36415; 80048; 80053; 80185; 81003; 83735; 84484; 85025; 87502; 93005; 93010; 94762; 97163; 99285-25; A9270; C9803; J1650; J2405; J3475; U0002

== ENCOUNTER 2023-02-24 08:33 | Emergency (ER) | payer MEDICARE ==
[~2023-02-24] VITALS: Ht 165.1 cm; Wt 104.3 kg
--- OUTSIDE RECORDS SUMMARY | ~2023-02-24 | XMS | Continuity of Care Document ---
Demographics + + + | Address | [address] | | | [place] [address] | + + + | Preferred Language | Unknown | + + + | Marital Status | | + + + | Temple Affiliation | Unknown | + + + | Race | White | + + + | Ethnic Group | Not or | + + + Author + + + | Author | [facility] | + + + | Organization | [facility] | + + + | Address | [address] | | | [place] [address] | + + + | Phone | | + + + Care Team Providers + + + + | Care Senior Talent Management Consultant Name | Role | Phone | + + + + Unavailable | Unavailable | + + + + Unavailable | Unavailable | + + + + Unavailable | Unavailable | + + + + Unavailable | Unavailable | + + + + Allergies and Intolerances + + + + + + | date | description | facility | reaction | severity | + + + + + + | (no date) | Aspirin | [facility] | (no reaction) | (no severity) | | | [facility] | | | + + + + + + | (no date) | Aspirin | [facility] | (no reaction) | (no severity) | | | | [facility] | | | + + + + + + | (no date) | aspirin | [facility] | (no reaction) | (no severity) | + + + + + + | (no date) | Aspirin | [facility] | (no reaction) | (no severity) | | | | [facility] | | | + + + + + + Encounters No information. Functional Status No information. Immunizations No information. Medications + + + + | date | description | facility | + + + + | 2020-12-25 00:00 | ONDANSETRON HCL | [facility] | + + + + | 2020-12-25 00:00 | ONDANSETRON HCL | [facility] | + + + + | 2023-02-17 00:00 | TRIAMCINOLONE ACETONIDE | [facility] | + + + + | 2023-02-23 00:00 | TRIAMCINOLONE ACETONIDE | [facility] | + + + + | 2023-02-17 00:00 | Ergocalciferol (Vitamin | [facility] | | | D2) | | + + + + | 2023-02-23 00:00 | Ergocalciferol (Vitamin | [facility] | | | D2) | | + + + + | 2023-02-17 00:00 | FLUTICASONE PROPIONATE 50 | [facility] | | | MCG | | + + + + | 2023-02-23 00:00 | FLUTICASONE PROPIONATE 50 | [facility] | | | MCG | | + + + + | 2023-02-17 00:00 | FLUTICASONE PROPIONATE 50 | [facility] | | | MCG | | + + + + | 2023-02-23 00:00 | FLUTICASONE PROPIONATE 50 | [facility] | | | MCG | | + + + + | 2023-02-17 00:00 | PHENOBARBITAL | [facility] | + + + + | 2023-02-23 00:00 | PHENOBARBITAL | [facility] | + + + + | 2023-02-17 00:00 | CARVEDILOL | [facility] | + + + + | 2023-02-23 00:00 | CARVEDILOL | [facility] | + + + + | 2023-02-17 00:00 | OMEPRAZOLE | [facility] | + + + + | 2023-02-23 00:00 | OMEPRAZOLE | [facility] | + + + + | 2014-07-21 00:00 | BENZONATATE | [facility] | + + + + | 2014-07-21 00:00 | BENZONATATE | [facility] | + + + + | 2023-02-17 00:00 | ASCORBIC ACID | [facility] | + + + + | 2023-02-23 00:00 | ASCORBIC ACID | [facility] | + + + + | 2020-12-25 00:00 | CEPHALEXIN | [facility] | + + + + | 2020-12-25 00:00 | CEPHALEXIN | [facility] | + + + + | 2023-02-17 00:00 | FERROUS SULFATE | [facility] | + + + + | 2023-02-23 00:00 | FERROUS SULFATE | [facility] | + + + + | 2023-02-17 00:00 | GABAPENTIN | [facility] | + + + + | 2023-02-23 00:00 | GABAPENTIN | [facility] | + + + + | 2023-02-17 00:00 | HYDROCHLOROTHIAZIDE | [facility] | + + + + | 2023-02-23 00:00 | HYDROCHLOROTHIAZIDE | [facility] | + + + + | 2023-02-17 00:00 | LANSOPRAZOLE | [facility] | + + + + | 2023-02-23 00:00 | LANSOPRAZOLE | [facility] | + + + + | 2023-02-17 00:00 | ATORVASTATIN CALCIUM | [facility] | + + + + | 2023-02-23 00:00 | ATORVASTATIN CALCIUM | [facility] | + + + + | 2023-02-17 00:00 | ATORVASTATIN | [facility] | + + + + | 2023-02-23 00:00 | ATORVASTATIN | [facility] | + + + + | 2017-08-23 00:00 | | [facility] | | | SULFAMETHOXAZOLE/TRIMETHOPR | | | | IM DS | | + + + + | 2017-08-23 00:00 | | [facility] | | | SULFAMETHOXAZOLE/TRIMETHOPR | | | | IM DS | | + + + + | 2023-02-17 00:00 | PHENYTOIN SODIUM | [facility] | + + + + | 2023-02-23 00:00 | PHENYTOIN SODIUM | [facility] | + + + + | 2018-06-02 00:00 | HYDROCODONE | [facility] | | | BIT/ACETAMINOPHEN | | + + + + | 2018-06-02 00:00 | HYDROCODONE | [facility] | | | BIT/ACETAMINOPHEN | | + + + + | 2023-02-17 00:00 | HYDROCODONE | [facility] | | | BIT/ACETAMINOPHEN | | + + + + | 2023-02-23 00:00 | HYDROCODONE | [facility] | | | BIT/ACETAMINOPHEN | | + + + + | 2023-02-17 00:00 | PRAMIPEXOLE DI-HCL | [facility] | + + + + | 2023-02-23 00:00 | PRAMIPEXOLE DI-HCL | [facility] | + + + + | 2023-02-17 00:00 | GUAIFENESIN | [facility] | + + + + | 2023-02-17 00:00 | GUAIFENESIN | [facility] | + + + + | 2023-02-17 00:00 | VIT | [facility] | | | C/E/ZN/COPPR/LUTEIN/ZEAXAN | | + + + + | 2023-02-23 00:00 | VIT | [facility] | | | C/E/ZN/COPPR/LUTEIN/ZEAXAN | | + + + + Problems + + + + | date | description | facility | + + + + | 2014-07-21 00:00 | Upper respiratory | [facility] | | | infection | | + + + + | 2014-07-21 00:00 | Upper respiratory | [facility] | | | infection | | + + + + | 2017-08-23 00:00 | Urinary tract infection | [facility] | + + + + | 2017-08-23 00:00 | Urinary tract infection | [facility] | + + + + | 2017-08-23 00:00 | Dizziness | [facility] | + + + + | 2017-08-23 00:00 | Dizziness | [facility] | + + + + | 2018-06-02 00:00 | Recurrent seizures | [facility] | + + + + | 2018-06-02 00:00 | Recurrent seizures | [facility] | + + + + | 2018-06-02 00:00 | Periorbital ecchymosis of | [facility] | | | left eye | | + + + + | 2018-06-02 00:00 | Periorbital ecchymosis of | [facility] | | | left eye | | + + + + | 2020-12-25 00:00 | Pyelonephritis | [facility] | + + + + | 2020-12-25 00:00 | Pyelonephritis | [facility] | + + + + | 2021-07-15 00:00 | Seizure | [facility] | + + + + | 2021-07-15 00:00 | Seizure | [facility] | + + + + | 2022-06-08 00:00 | Anemia | [facility] | + + + + | 2022-06-08 00:00 | Anemia | [facility] | + + + + | 2022-06-08 00:00 | Mass of cecum | [facility] | + + + + | 2022-06-08 00:00 | Mass of cecum | [facility] | + + + + | 2022-06-08 [...] + + | 2022-06-08 14:36 | OTHER CARE HOME (CURRENT) | [facility] | | | DRUG [...] 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 | | + + + + | 2022-07-07 09:08 | GASTRO-ESOPHAGEAL REFLUX | [facility] | | | 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 | | + + + + | 2022-07-07 09:08 | OTHER CARE HOME (CURRENT) | [facility] | | | DRUG [...] CARDIOVASCUL | | + + + + | 2023-02-13 00:00 | Poisoning by phenytoin | [facility] | + + + + | 2023-02-13 00:00 | Poisoning by phenytoin | [facility] | + + + + | 2023-02-14 00:00 | Hypomagnesemia | [facility] | + + + + | 2023-02-14 00:00 | Hypomagnesemia | [facility] | + + + + | 2023-02-16 11:10 | HYPERLIPIDEMIA, | [facility] | | | UNSPECIFIED | | + + + + | 2023-02-16 11:10 | HYPOMAGNESEMIA | [facility] | + + + + | 2023-02-16 11:10 | RESTLESS LEGS SYNDROME | [facility] | + + + + | 2023-02-16 11:10 | EPILEPSY, UNSP, NOT | [facility] | | | INTRACTABLE, WITHOUT STATUS | | | | EP | | + + + + | 2023-02-16 11:10 | 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 | | + + + + | 2023-02-16 11:10 | OTHER VISUAL DISTURBANCES | [facility] | + + + + | 2023-02-16 11:10 | Essential (primary) | [facility] | | | hypertension | | + + + + | 2023-02-16 11:10 | OLD MYOCARDIAL INFARCTION | [facility] | + + + + | 2023-02-16 11:10 | UNSPECIFIED ATRIAL | [facility] | | | FIBRILLATION | | + + + + | 2023-02-16 11:10 | ACUTE EMBOLISM AND THOMBOS | [facility] | | | UNSP DEEP VN UNSP LOWER | | + + + + | 2023-02-16 11:10 | ACUTE PHARYNGITIS, | [facility] | | | UNSPECIFIED | | + + + + | 2023-02-16 11:10 | GASTRO-ESOPHAGEAL REFLUX | [facility] | | | 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 | | + + + + | 2023-02-16 11:10 | TACHYPNEA, NOT ELSEWHERE | [facility] | | | CLASSIFIED | | + + + + | 2023-02-16 11:10 | REPEATED FALLS | [facility] | + + + + | 2023-02-16 11:10 | Dizziness and giddiness | [facility] | + + + + | 2023-02-16 11:10 | ADVERSE EFFECT OF | [facility] | | | HYDANTOIN DERIVATIVES, | | | | INITIAL E | | + + + + | 2023-02-16 11:10 | COVID-19 | [facility] | + + + + | 2023-02-16 11:10 | CARE HOME (CURRENT) USE OF | [facility] | | | ANTITHROMBOTICS/ANTIPLA | | + + + + | 2023-02-16 11:10 | OTHER AUTOMOTIVE PARTS INTERPRETER (CURRENT) | [facility] | | | DRUG THERAPY | | + + + + | 2023-02-16 11:10 | PERSONAL HISTORY OF | [facility] | | | NICOTINE DEPENDENCE | | + + + + | 2023-02-16 11:10 | ALLERGY STATUS TO OTH | [facility] | | | DRUG/MEDS/BIOL SUBST STATUS | | | | | | + + + + | 2023-02-16 11:10 | 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 | 1.6 | mg/dL | (missing) | | (unavailable | 22:44:07 | [facility] | | | | + + + +-------+---------+ + + + | Result panel 2 | + + + + + +--------+ + + | | 2023-02-13 | [facility] | 10.0 | (missing) | (missing) | | (unavailable | 22:44:07 | [facility] | | | | + + + +--------+ + + + + | Result panel 3 | + + + + + +-------+---------+ + | | 2023-02-13 | [facility] | 1.6 | mg/dL | (missing) | | (unavailable | 22:44:07 | [facility] | | | | + + + +-------+---------+ + + + | Result panel 4 | + + + + + +--------+ + + | | 2023-02-13 | [facility] | 10.0 | (missing) | (missing) | | (unavailable | 22:44:07 | [facility] | | | | + + + +--------+ + + + + | Result panel 5 | + + + + + + + + + | | 2023-02-13 | [facility] | YELLOW | (missing) | (missing) | | (unavailable | 23:10:07 | [facility] | | | | + + + + + + + + + | Result panel 6 | + + + + + +---------+ + + | | 2023-02-13 | [facility] | CLEAR | (missing) | (missing) | | (unavailable | 23:10:07 | [facility] | | | | + + + +---------+ + + + + | Result panel 7 | + + + + + + + + + | | 2023-02-13 | [facility] | NEGATIVE | (missing) | (missing) | | (unavailable | 23:10:07 [facility] | | | | + + + + + + + + + | Result panel 8 | + + + + + + + + + | | 2023-02-13 | [facility] | NEGATIVE | (missing) | (missing) | | (unavailable | 23:10:07 | [facility] | | | | + + + + + + + + + | Result panel 9 | + + + + + + + + + | | 2023-02-13 | [facility] | NEGATIVE | (missing) | (missing) | | (unavailable | 23:10:07 | [facility] | | | | + + + + + + + + + | Result panel 10 | + + + + + +---------+ + + | | 2023-02-13 | [facility] | 1.010 | (missing) | (missing) | | (unavailable | 23:10:07 [facility] | | | | + + + +---------+ + + + + | Result panel 11 | + + + + + + + + + | | 2023-02-13 | [facility] | NEGATIVE | (missing) | (missing) | | (unavailable | 23:10:07 | [facility] | | | | + + + + + + + + + | Result panel 12 | + + + + + +-------+ + + | | 2023-02-13 | [facility] | 7.5 | (missing) | (missing) | | (unavailable | 23:10:07 [facility] | | | | + + + +-------+ + + + + | Result panel 13 | + + + + + + + + + | | 2023-02-13 | [facility] | NEGATIVE | (missing) | (missing) | | (unavailable | 23:10:07 [facility] | | | | + + + + + + + + + | Result panel 14 | + + + + + + + + + | | 2023-02-13 | [facility] | NORMAL | (missing) | (missing) | | (unavailable | 23:10:07 [facility] | | | | + + + + + + + + + | Result panel 15 | + + + + + + + + + | | 2023-02-13 | [facility] | NEGATIVE | (missing) | (missing) | | (unavailable | 23:10:07 [facility] | | | | + + + + + + + + + | Result panel 16 | + + + + + + + + + | | 2023-02-13 | [facility] | NEGATIVE | (missing) | (missing) | | (unavailable | 23:10:07 | [facility] | | | | + + + + + + + + + | Result panel 17 | + + + + + + + + + | | 2023-02-13 | [facility] | YELLOW | (missing) | (missing) | | (unavailable | 23:10:07 [facility] | | | | + + + + + + + + + | Result panel 18 | + + + + + +---------+ + + | | 2023-02-13 | [facility] | CLEAR | (missing) | (missing) | | (unavailable | 23:10:07 [facility] | | | | + + + +---------+ + + + + | Result panel 19 | + + + + + + + + + | | 2023-02-13 | [facility] | NEGATIVE | (missing) | (missing) | | (unavailable | 23:10:07 [facility] | | | | + + + + + + + + + | Result panel 20 | + + + + + + + + + | | 2023-02-13 | [facility] | NEGATIVE | (missing) | (missing) | | (unavailable | 23:10:07 [facility] | | | | + + + + + + + + + | Result panel 21 | + + + + + + + + + | | 2023-02-13 | [facility] | NEGATIVE | (missing) | (missing) | | (unavailable | 23:10:07 [facility] | | | | + + + + + + + + + | Result panel 22 | + + + + + +---------+ + + | | 2023-02-13 | [facility] | 1.010 | (missing) | (missing) | | (unavailable | 23:10:07 [facility] | | | | + + + +---------+ + + + + | Result panel 23 | + + + + + + + + + | | 2023-02-13 | [facility] | NEGATIVE | (missing) | (missing) | | (unavailable | 23:10:07 [facility] | | | | + + + + + + + + + | Result panel 24 | + + + + + +-------+ + + | | 2023-02-13 | [facility] | 7.5 | (missing) | (missing) | | (unavailable | 23:10:07 [facility] | | | | + + + +-------+ + + + + | Result panel 25 | + + + + + + + + + | | 2023-02-13 | [facility] | NEGATIVE | (missing) | (missing) | | (unavailable | 23:10:07 [facility] | | | | + + + + + + + + + | Result panel 26 | + + + + + + + + + | | 2023-02-13 | [facility] | NORMAL | (missing) | (missing) | | (unavailable | 23:10:07 [facility] | | | | + + + + + + + + + | Result panel 27 | + + + + + + + + + | | 2023-02-13 | [facility] | NEGATIVE | (missing) | (missing) | | (unavailable | 23:10:07 [facility] | | | | + + + + + + + + + | Result panel 28 | + + + + + + + + + | | 2023-02-13 | [facility] | NEGATIVE | (missing) | (missing) | | (unavailable | 23:10:07 [facility] | | | | + + + + + + + + + | Result panel 29 | + + + + + +-------+ + + | | 2023-02-14 | [facility] | 3.2 | (missing) | (missing) | | (unavailable | 05:10:07 [facility] | | | | + + + +-------+ + + + + | Result panel 30 | + + + + + +-------+ + + | | 2023-02-14 | [facility] | 3.1 | (missing) | (missing) | | (unavailable | 05:10:07 [facility] | | | | + + + +-------+ + + + + | Result panel 31 | + + + + + +--------+ + + | | 2023-02-14 | [facility] | 1.03 | (missing) | (missing) | | (unavailable | 05:10:07 [facility] | | | | + + + +--------+ + + + + | Result panel 32 | + + + + + +-------+ + + | | 2023-02-14 | [facility] | 0.4 | (missing) | (missing) | | (unavailable | 05:10:07 [facility] | | | | + + + +-------+ + + + + | Result panel 33 | + + + + + +------+ + + | | 2023-02-14 | [facility] | 17 | (missing) | (missing) | | (unavailable | 05:10:07 [facility] | | | | + + + +------+ + + + + | Result panel 34 | + + + + + +------+ + + | | 2023-02-14 | [facility] | 18 | (missing) | (missing) | | (unavailable | 05:10:07 [facility] | | | | + + + +------+ + + + + | Result panel 35 | + + + + + +------+ + + | | 2023-02-14 | [facility] | 82 | (missing) | (missing) | | (unavailable | 05:10:07 [facility] | | | | + + + +------+ + + + + | Result panel 36 | + + + + + +-------+ + + | | 2023-02-14 | [facility] | 6.3 | (missing) | (missing) | | (unavailable | 05:10:07 [facility] | | | | + + + +-------+ + + + + | Result panel 37 | + + + + + +-------+ + + | | 2023-02-14 | [facility] | 3.2 | (missing) | (missing) | | (unavailable | 05:10:07 [facility] | | | | + + + +-------+ + + + + | Result panel 38 | + + + + + +-------+ + + | | 2023-02-14 | [facility] | 3.1 | (missing) | (missing) | | (unavailable | 05:10:07 [facility] | | | | + + + +-------+ + + + + | Result panel 39 | + + + + + +--------+ + + | | 2023-02-14 | [facility] | 1.03 | (missing) | (missing) | | (unavailable | 05:10:07 [facility] | | | | + + + +--------+ + + + + | Result panel 40 | + + + + + +-------+ + + | | 2023-02-14 | [facility] | 0.4 | (missing) | (missing) | | (unavailable | 05:10:07 [facility] | | | | + + + +-------+ + + + + | Result panel 41 | + + + + + +------+ + + | | 2023-02-14 | [facility] | 17 | (missing) | (missing) | | (unavailable | 05:10:07 [facility] | | | | + + + +------+ + + + + | Result panel 42 | + + + + + +------+ + + | | 2023-02-14 | [facility] | 18 | (missing) | (missing) | | (unavailable | 05:10:07 [facility] | | | | + + + +------+ + + + + | Result panel 43 | + + + + + +------+ + + | | 2023-02-14 | [facility] | 82 | (missing) | (missing) | | (unavailable | 05:10:07 [facility] | | | | + + + +------+ + + + + | Result panel 44 | + + + + + +-------+ + + | | 2023-02-14 | [facility] | 6.3 | (missing) | (missing) | | (unavailable | 05:10:07 [facility] | | | | + + + +-------+ + + + + | Result panel 45 | + + + + + +-------+ + + | | 2023-02-16 | [facility] | 4.9 | (missing) | (missing) | | (unavailable | 05:25:07 [facility] | | | | + + + +-------+ + + + + | Result panel 46 | + + + + + +--------+ + + | | 2023-02-16 | [facility] | 61.6 | (missing) | (missing) | | (unavailable | 05:25:07 [facility] | | | | + + + +--------+ + + + + | Result panel 47 | + + + + + +--------+ + + | | 2023-02-16 | [facility] | 25.4 | (missing) | (missing) | | (unavailable | 05:25:07 [facility] | | | | + + + +--------+ + + + + | Result panel 48 | + + + + + +-------+ + + | | 2023-02-16 | [facility] | 6.4 | (missing) | (missing) | | (unavailable | 05:25:07 [facility] | | | | + + + +-------+ + + + + | Result panel 49 | + + + + + +-------+ + + | | 2023-02-16 | [facility] | 6.3 | (missing) | (missing) | | (unavailable | 05:25:07 [facility] | | | | + + + +-------+ + + + + | Result panel 50 | + + + + + +-------+ + + | | 2023-02-16 | [facility] | 0.3 | (missing) | (missing) | | (unavailable | 05:25:07 [facility] | | | | + + + +-------+ + + + + | Result panel 51 | + + + + + +------+---------+ + | | 2023-02-16 | [facility] | 94 | mg/dL | (missing) | | (unavailable | 05:25:07 [facility] | | | | + + + +------+---------+ + + + | Result panel 52 | + + + + + +------+---------+ + | | 2023-02-16 | [facility] | 11 | mg/dL | (missing) | | (unavailable | 05:25:07 [facility] | | | | + + + +------+---------+ + + + | Result panel 53 | + + + + + +--------+---------+ + | | 2023-02-16 | [facility] | 0.69 | mg/dL | (missing) | | (unavailable | 05::07 | [facility] | | | | + + + +--------+---------+ + + + | Result panel 54 | + + + + + +------+ + + | | 2023-02-16 | [facility] | 90 | (missing) | (missing) | | (unavailable | 05:25:07 [facility] | | | | + + + +------+ + + + + | Result panel 55 | + + + + + +---------+ + + | | 2023-02-16 | [facility] | 15.94 | (missing) | (missing) | | (unavailable | 05:25:07 [facility] | | | | + + + +---------+ + + + + | Result panel 56 | + + + + + +--------+ + + | | 2023-02-16 | [facility] | 3.52 | (missing) | (missing) | | (unavailable | 05:25:07 [facility] | | | | + + + +--------+ + + + + | Result panel 57 | + + + + + +-------+ + + | | 2023-02-16 | [facility] | 140 | (missing) | (missing) | | (unavailable | 05:25:07 [facility] | | | | + + + +-------+ + + + + | Result panel 58 | + + + + + +-------+ + + | | 2023-02-16 | [facility] | 3.7 | (missing) | (missing) | | (unavailable | 05:25:07 [facility] | | | | + + + +-------+ + + + + | Result panel 59 | + + + + + +-------+ + + | | 2023-02-16 | [facility] | 104 | (missing) | (missing) | | (unavailable | 05:25:07 [facility] | | | | + + + +-------+ + + + + | Result panel 60 | + + + + + +------+ + + | | 2023-02-16 | [facility] | 30 | (missing) | (missing) | | (unavailable | 05:25:07 | [facility] | | | | + + + +------+ + + + + | Result panel 61 | + + + + + +-------+ + + | | 2023-02-16 | [facility] | 9.7 | (missing) | (missing) | | (unavailable | 05:25:07 | [facility] | | | | + + + +-------+ + + + + | Result panel 62 | + + + + + +-------+---------+ + | | 2023-02-16 | [facility] | 8.8 | mg/dL | (missing) | | (unavailable | 05:25:07 | [facility] | | | | + + + +-------+---------+ + + + | Result panel 63 | + + + + + +--------+ + + | | 2023-02-16 | [facility] | 10.9 | (missing) | (missing) | | (unavailable | 05:25:07 | [facility] | | | | + + + +--------+ + + + + | Result panel 64 | + + + + + +--------+ + + | | 2023-02-16 | [facility] | 31.8 | (missing) | (missing) | | (unavailable | 05:25:07 | [facility] | | | | + + + +--------+ + + + + | Result panel 65 | + + + + + +--------+ + + | | 2023-02-16 | [facility] | 90.4 | (missing) | (missing) | | (unavailable | 05:25:07 | [facility] | | | | + + + +--------+ + + + + | Result panel 66 | + + + + + +-------+ + + | | 2023-02-16 | [facility] | 4.9 | (missing) | (missing) | | (unavailable | 05:25:07 | [facility] | | | | + + + +-------+ + + + + | Result panel 67 | + + + + + +--------+ + + | | 2023-02-16 | [facility] | 3.52 | (missing) | (missing) | | (unavailable | 05::07 | [facility] | | | | + + + +--------+ + + + + | Result panel 68 | + + + + + +--------+ + + | | 2023-02-16 | [facility] | 10.9 | (missing) | (missing) | | (unavailable | 05:25:07 | [facility] | | | | + + + +--------+ + + + + | Result panel 69 | + + + + + +--------+ + + | | 2023-02-16 | [facility] | 31.8 | (missing) | (missing) | | (unavailable | 05:25:07 | [facility] | | | | + + + +--------+ + + + + | Result panel 70 | + + + + + +--------+ + + | | 2023-02-16 | [facility] | 31.0 | (missing) | (missing) | | (unavailable | 05:25:07 | [facility] | | | | + + + +--------+ + + + + | Result panel 71 | + + + + + +--------+ + + | | 2023-02-16 | [facility] | 90.4 | (missing) | (missing) | | (unavailable | 05:25:07 | [facility] | | | | + + + +--------+ + + + + | Result panel 72 | + + + + + +--------+ + + | | 2023-02-16 | [facility] | 31.0 | (missing) | (missing) | | (unavailable | 05:25:07 | [facility] | | | | + + + +--------+ + + + + | Result panel 73 | + + + + + +--------+ + + | | 2023-02-16 | [facility] | 34.3 | (missing) | (missing) | | (unavailable | 05:25:07 | [facility] | | | | + + + +--------+ + + + + | Result panel 74 | + + + + + +--------+ + + | | 2023-02-16 | [facility] | 15.1 | (missing) | (missing) | | (unavailable | 05:25:07 | [facility] | | | | + + + +--------+ + + + + | Result panel 75 | + + + + + +-------+ + + | | 2023-02-16 | [facility] | 139 | (missing) | (missing) | | (unavailable | 05:25:07 | [facility] | | | | + + + +-------+ + + + + | Result panel 76 | + + + + + +--------+ + + | | 2023-02-16 | [facility] | 61.6 | (missing) | (missing) | | (unavailable | 05:25:07 | [facility] | | | | + + + +--------+ + + + + | Result panel 77 | + + + + + +--------+ + + | | 2023-02-16 | [facility] | 25.4 | (missing) | (missing) | | (unavailable | 05:25:07 | [facility] | | | | + + + +--------+ + + + + | Result panel 78 | + + + + + +-------+ + + | | 2023-02-16 | [facility] | 6.4 | (missing) | (missing) | | (unavailable | 05:25:07 | [facility] | | | | + + + +-------+ + + + + | Result panel 79 | + + + + + +-------+ + + | | 2023-02-16 | [facility] | 6.3 | (missing) | (missing) | | (unavailable | 05:25:07 | [facility] | | | | + + + +-------+ + + + + | Result panel 80 | + + + + + +-------+ + + | | 2023-02-16 | [facility] | 0.3 | (missing) | (missing) | | (unavailable | 05:25:07 | [facility] | | | | + + + +-------+ + + + + | Result panel 81 | + + + + + +--------+ + + | | 2023-02-16 | [facility] | 34.3 | (missing) | (missing) | | (unavailable | 05:25:07 | [facility] | | | | + + + +--------+ + + + + | Result panel 82 | + + + + + +------+---------+ + | | 2023-02-16 | [facility] | 94 | mg/dL | (missing) | | (unavailable | 05:25:07 | [facility] | | | | + + + +------+---------+ + + + | Result panel 83 | + + + + + +------+---------+ + | | 2023-02-16 | [facility] | 11 | mg/dL | (missing) | | (unavailable | 05:25:07 | [facility] | | | | + + + +------+---------+ + + + | Result panel 84 | + + + + + +--------+---------+ + | | 2023-02-16 | [facility] | 0.69 | mg/dL | (missing) | | (unavailable | 05:25:07 | [facility] | | | | + + + +--------+---------+ + + + | Result panel 85 | + + + + + +------+ + + | | 2023-02-16 | [facility] | 90 | (missing) | (missing) | | (unavailable | 05:25:07 | [facility] | | | | + + + +------+ + + + + | Result panel 86 | + + + + + +---------+ + + | | 2023-02-16 | [facility] | 15.94 | (missing) | (missing) | | (unavailable | 05:25:07 | [facility] | | | | + + + +---------+ + + + + | Result panel 87 | + + + + + +-------+ + + | | 2023-02-16 | [facility] | 140 | (missing) | (missing) | | (unavailable | 05:25:07 | [facility] | | | | + + + +-------+ + + + + | Result panel 88 | + + + + + +-------+ + + | | 2023-02-16 | [facility] | 3.7 | (missing) | (missing) | | (unavailable | 05:25:07 | [facility] | | | | + + + +-------+ + + + + | Result panel 89 | + + + + + +-------+ + + | | 2023-02-16 | [facility] | 104 | (missing) | (missing) | | (unavailable | 05:25:07 | [facility] | | | | + + + +-------+ + + + + | Result panel 90 | + + + + + +------+ + + | | 2023-02-16 | [facility] | 30 | (missing) | (missing) | | (unavailable | 05:25:07 | [facility] | | | | + + + +------+ + + + + | Result panel 91 | + + + + + +-------+ + + | | 2023-02-16 | [facility] | 9.7 | (missing) | (missing) | | (unavailable | 05:25:07 | [facility] | | | | + + + +-------+ + + + + | Result panel 92 | + + + + + +--------+ + + | | 2023-02-16 | [facility] | 15.1 | (missing) | (missing) | | (unavailable | 05:25:07 | [facility] | | | | + + + +--------+ + + + + | Result panel 93 | + + + + + +-------+---------+ + | | 2023-02-16 | [facility] | 8.8 | mg/dL | (missing) | | (unavailable | 05:25:07 | [facility] | | | | + + + +-------+---------+ + + + | Result panel 94 | + + + + + +-------+ + + | | 2023-02-16 | [facility] | 139 | (missing) | (missing) | | (unavailable | 05:25:07 | [facility] | | | | + + + +-------+ + + + + | Result panel 95 | + + + + + + + + + | | 2023-02-16 | [facility] | POSITIVE | (missing) | (missing) | | (unavailable | 10:40:07 | [facility] | | | | + + + + + + + + + | Result panel 96 | + + + + + + + + + | | 2023-02-16 | [facility] | NEGATIVE | (missing) | (missing) | | (unavailable | 10:40:07 | [facility] | | | | + + + + + + + + + | Result panel 97 | + + + + + + + + + | | 2023-02-16 | [facility] | NEGATIVE | (missing) | (missing) | | (unavailable | 10:40:07 | [facility] | | | | + + + + + + + + + | Result panel 98 | + + + + + + + + + | | 2023-02-16 | [facility] | NEGATIVE | (missing) | (missing) | | (unavailable | 10:40:07 | [facility] | | | | + + + + + + + + + | Result panel 99 | + + + + + + + + + | | 2023-02-16 | [facility] | POSITIVE | (missing) | (missing) | | (unavailable | 10:40:07 | [facility] | | | | + + + + + + + + + | Result panel 100 | + + + + + + + + + | | 2023-02-16 | [facility] | NEGATIVE | (missing) | (missing) | | (unavailable | 10:40:07 | [facility] | | | | + + + + + + + + + | Result panel 101 | + + + + + + + + + | | 2023-02-16 | [facility] | NEGATIVE | (missing) | (missing) | | (unavailable | 10:40:07 | [facility] | | | | + + + + + + + + + | Result panel 102 | + + + + + + + + + | | 2023-02-16 | [facility] | NEGATIVE | (missing) | (missing) | | (unavailable | 10:40:07 | [facility] | | | | + + + + + + + + + | Result panel 103 | + + + + + +--------+ + + | | 2023-02-17 | [facility] | 25.7 | (missing) | (missing) | | (unavailable | 06:16:07 | [facility] | | | | + + + +--------+ + + + + | Result panel 104 | + + + + + +------+ + + | | 2023-02-17 | [facility] | // | (missing) | (missing) | | (unavailable | 06:16:07 | [facility] | | | | + + + +------+ + + + + | Result panel 105 | + + + + + +-------+ + + | | 2023-02-23 | [facility] | 8.5 | (missing) | (missing) | | (unavailable | : | [facility] | | | | + + + +-------+ + + + + | Result panel 106 | + + + + + +------+ + + | | 2023-02-23 | [facility] | // | (missing) | (missing) | | (unavailable | :07 | [facility] | | | | + + + +------+ + + Social History No information. Vital Signs + + + +---------+ | date | measurement | value | units | + + + +---------+ | 2023-02-14 00:00 | BMI | 38.2 | kg/m2 | + + + +---------+ | 2023-02-14 00:00 | height_metric | 165.1 | cm | + + + +---------+ | 2023-02-14 00:00 | height_standard | 65 | in | + + + +---------+ | 2023-02-14 00:00 | weight_metric | 104 | kg | + + + +---------+ | 2023-02-14 00:00 | weight_standard | 229.28 | lb | + + + +---------+ | 2023-02-17 00:00 | BP_diastolic | 52 | mmHg | + + + +---------+ | 2023-02-17 00:00 | BP_systolic | 149 | mmHg | + + + +---------+ | 2023-02-17 00:00 | heart_rate | 74 | /min | + + + +---------+ | 2023-02-17 00:00 | o2_saturation | 100 | % | + + + +---------+ | 2023-02-17 00:00 | respiration_rate | 18 | /min | + + + +---------+ | 2023-02-17 00:00 | temperature_metric | 37.89 | C | | | | | | + + + +---------+ | 2023-02-17 00:00 | | 100.2 | F | | | temperature_standar | | | | | d | | | + + + +---------+ | 2023-02-23 00:00 | BMI | 44.9 | kg/m2 | + + + +---------+ | 2023-02-23 00:00 | BP_diastolic | 125 | mmHg | + + + +---------+ | 2023-02-23 00:00 | BP_systolic | 180 | mmHg | + + + +---------+ | 2023-02-23 00:00 | heart_rate | 78 | /min | + + + +---------+ | 2023-02-23 00:00 | height_metric | 152.4 | cm | + + + +---------+ | 2023-02-23 00:00 | height_standard | 60 | in | + + + +---------+ | 2023-02-23 00:00 | o2_saturation | 98 | % | + + + +---------+ | 2023-02-23 00:00 | respiration_rate | 17 | /min | + + + +---------+ | 2023-02-23 00:00 | temperature_metric | 36.89 | C | | | | | | + + + +---------+ | 2023-02-23 00:00 | | 98.4 | F | | | temperature_standar | | | | | d | | | + + + +---------+ | 2023-02-23 00:00 | weight_metric | 104.27 | kg | + + + +---------+ | 2023-02-23 00:00 | weight_standard | 229.88 | lb | + + + +---------+"
--- OUTSIDE RECORDS SUMMARY | ~2023-02-24 | XMS | Continuity of Care Document ---
Demographics + + + | Address | [address] | | | [place] [address] | + + + | Preferred Language | Unknown | + + + | Marital Status | | + + + | Latter Day Affiliation | Unknown | + + + | Race | White | + + + | Ethnic Group | Not or | + + + Author + + + | Author | [facility] | + + + | Organization | [facility] | + + + | Address | [address] | | | [place] [address] | + + + | Phone | | + + + Care Team Providers + + + + | [facility] [employer] Name | Role | Phone | + [...] | 2020-12-25 00:00 | ONDANSETRON HCL | [facility] | + + + + | 2020-12-25 00:00 | ONDANSETRON HCL | [facility] | + + + + | 2023-02-17 00:00 | TRIAMCINOLONE ACETONIDE | [facility] | + + + + | 2023-02-23 00:00 | TRIAMCINOLONE ACETONIDE | [facility] | + + + + | 2023-02-17 00:00 | Ergocalciferol (Vitamin | [facility] | | | D2) | | + + + + | 2023-02-23 00:00 | Ergocalciferol (Vitamin | [facility] | | | D2) | | + + + + | 2023-02-17 00:00 | FLUTICASONE PROPIONATE 50 | [facility] | | | MCG | | + + + + | 2023-02-23 00:00 | FLUTICASONE PROPIONATE 50 | [facility] | | | MCG | | + + + + | 2023-02-17 00:00 | FLUTICASONE PROPIONATE 50 | [facility] | | | MCG | | + + + + | 2023-02-23 00:00 | FLUTICASONE PROPIONATE 50 | [facility] | | | MCG | | + + + + | 2023-02-17 00:00 | PHENOBARBITAL | [facility] | + + + + | 2023-02-23 00:00 | PHENOBARBITAL | [facility] | + + + + | 2023-02-17 00:00 | CARVEDILOL | [facility] | + + + + | 2023-02-23 00:00 | CARVEDILOL | [facility] | + + + + | 2023-02-17 00:00 | OMEPRAZOLE | [facility] | + + + + | 2023-02-23 00:00 | OMEPRAZOLE | [facility] | + + + + | 2014-07-21 00:00 | BENZONATATE | [facility] | + + + + | 2014-07-21 00:00 | BENZONATATE | [facility] | + + + + | 2023-02-17 00:00 | ASCORBIC ACID | [facility] | + + + + | 2023-02-23 00:00 | ASCORBIC ACID | [facility] | + + + + | 2020-12-25 00:00 | CEPHALEXIN | [facility] | + + + + | 2020-12-25 00:00 | CEPHALEXIN | [facility] | + + + + | 2023-02-17 00:00 | FERROUS SULFATE | [facility] | + + + + | 2023-02-23 00:00 | FERROUS SULFATE | [facility] | + + + + | 2023-02-17 00:00 | GABAPENTIN | [facility] | + + + + | 2023-02-23 00:00 | GABAPENTIN | [facility] | + + + + | 2023-02-17 00:00 | HYDROCHLOROTHIAZIDE | [facility] | + + + + | 2023-02-23 00:00 | HYDROCHLOROTHIAZIDE | [facility] | + + + + | 2023-02-17 00:00 | LANSOPRAZOLE | [facility] | + + + + | 2023-02-23 00:00 | LANSOPRAZOLE | [facility] | + + + + | 2023-02-17 00:00 | ATORVASTATIN CALCIUM | [facility] | + + + + | 2023-02-23 00:00 | ATORVASTATIN CALCIUM | [facility] | + + + + | 2023-02-17 00:00 | ATORVASTATIN | [facility] | + + + + | 2023-02-23 00:00 | ATORVASTATIN | [facility] | + + + + | 2017-08-23 00:00 | | [facility] | | | SULFAMETHOXAZOLE/TRIMETHOPR | | | | IM DS | | + + + + | 2017-08-23 00:00 | | [facility] | | | SULFAMETHOXAZOLE/TRIMETHOPR | | | | IM DS | | + + + + | 2023-02-17 00:00 | PHENYTOIN SODIUM | [facility] | + + + + | 2023-02-23 00:00 | PHENYTOIN SODIUM | [facility] | + + + + | 2018-06-02 00:00 | HYDROCODONE | [facility] | | | BIT/ACETAMINOPHEN | | + + + + | 2018-06-02 00:00 | HYDROCODONE | [facility] | | | BIT/ACETAMINOPHEN | | + + + + | 2023-02-17 00:00 | HYDROCODONE | [facility] | | | BIT/ACETAMINOPHEN | | + + + + | 2023-02-23 00:00 | HYDROCODONE | [facility] | | | BIT/ACETAMINOPHEN | | + + + + | 2023-02-17 00:00 | PRAMIPEXOLE DI-HCL | [facility] | + + + + | 2023-02-23 00:00 | PRAMIPEXOLE DI-HCL | [facility] | + + + + | 2023-02-17 00:00 | GUAIFENESIN | [facility] | + + + + | 2023-02-17 00:00 | GUAIFENESIN | [facility] | + + + + | 2023-02-17 00:00 | VIT | [facility] | | | C/E/ZN/COPPR/LUTEIN/ZEAXAN | | + + + + | 2023-02-23 00:00 | VIT | [facility] | | | C/E/ZN/COPPR/LUTEIN/ZEAXAN | | + + + + Problems + + + + | date | description | facility | + + + + | 2014-07-21 00:00 | Upper respiratory | [facility] | | | infection | | + + + + | 2014-07-21 00:00 | Upper respiratory | [facility] | | | infection | | + + + + | 2017-08-23 00:00 | Urinary tract infection | [facility] | + + + + | 2017-08-23 00:00 | Urinary tract infection | [facility] | + + + + | 2017-08-23 00:00 | Dizziness | [facility] | + + + + | 2017-08-23 00:00 | Dizziness | [facility] | + + + + | 2018-06-02 00:00 | Recurrent seizures | [facility] | + + + + | 2018-06-02 00:00 | Recurrent seizures | [facility] | + + + + | 2018-06-02 00:00 | Periorbital ecchymosis of | [facility] | | | left eye | | + + + + | 2018-06-02 00:00 | Periorbital ecchymosis of | [facility] | | | left eye | | + + + + | 2020-12-25 00:00 | Pyelonephritis | [facility] | + + + + | 2020-12-25 00:00 | Pyelonephritis | [facility] | + + + + | 2021-07-15 00:00 | Seizure | [facility] | + + + + | 2021-07-15 00:00 | Seizure | [facility] | + + + + | 2022-06-08 00:00 | Anemia | [facility] | + + + + | 2022-06-08 00:00 | Anemia | [facility] | + + + + | 2022-06-08 00:00 | Mass of cecum | [facility] | + + + + | 2022-06-08 00:00 | Mass of cecum | [facility] | + + + + [...] + + | 2022-06-08 14:36 | OTHER FDC (CURRENT) | [facility] | | | DRUG [...] 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 | | + + + + | 2022-07-07 09:08 | GASTRO-ESOPHAGEAL REFLUX | [facility] | | | 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 | | + + + + | 2022-07-07 09:08 | OTHER [facility]DC (CURRENT) | [facility] | | | DRUG [...] 2023-02-13 00:00 | Poisoning by phenytoin | [facility] | + + + + | 2023-02-13 00:00 | Poisoning by phenytoin | [facility] | + + + + | 2023-02-14 00:00 | Hypomagnesemia | [facility] | + + + + | 2023-02-14 00:00 | Hypomagnesemia | [facility] | + + + + [...] + + + | 2023-02-16 11:10 | FDC (CURRENT) USE OF | [facility] | | | ANTITHROMBOTICS/ANTIPLA | | + + + + | 2023-02-16 11:10 | OTHER ORDER SELECTOR (CURRENT) | [facility] | | | DRUG [...] (missing) | | (unavailable | 05:25:07 | [facility] | | | | | ) | [...]
[~2023-02-24 08:33] MED LIST changes: +FLUTICASONE PRO16 GM NAS; +IRON325 M1 PO; +MUCINEX600 MG PO; +TRIAMCINOLONE A15 G3 TOP
[2023-02-24 09:33] LABS: BASOPHILS 0.2 % (0-2); EOSINOPHILS 1.5 % (0-6); HEMATOCRIT 33.2 % (35.0-50.0); HEMOGLOBIN 11.5 g/dL (12.0-18.0); LYMPHOCYTES 18.1 % (24-44); MCH 30.6 (27-36); MCHC 34.7 g/dl (30-36); MCV 88.3 fl (81-99); MONOCYTES 5.6 % (0-12); NEUTROPHILS 74.6 % (39-80); PLATELET COUNT 213 K/uL (140-440); RBC 3.76 M/ul (4.3-5.7)
[2023-02-24 09:50] LABS: ALBUMIN 3.4 g/dL (3.4-5.0); ALBUMIN/GLOBULIN RATIO 0.85 (1.1-2.4); ALKALINE PHOSPHATASE 112 U/L (46-116); ALT (SGPT) 50 U/L (14-59); ANION GAP 12.2 (7-21); AST (SGOT) 55 U/L (15-37); BILIRUBIN, TOTAL 0.6 ng/dL (0.2-1.0); BUN/CREATININE RATIO 9.52 (6.0-28.6); CALCIUM 9.2 mg/dL (8.5-10.1); CARBON DIOXIDE 26 mmol/L (21-32); CHLORIDE 101 mmol/L (98-107); CREATININE, SERUM 0.63 mg/dL (0.55-1.02); GLOMERULAR FILTRATION RATE,EST 92 mL/min (>60); POTASSIUM 3.2 mmol/L (3.5-5.1); PROTEIN, TOTAL 7.4 g/dL (6.4-8.2); UREA NITROGEN 6 mg/dL (7-18)
[2023-02-24 13:49] VITALS: BP 157/81
== END 2023-02-24 13:52 | disposition home or self-care (01) ==
LOC: ED 08:33
PROVIDERS: Emergency Medicine
DX: G40.909 Epilepsy, unspecified, not intractable, without status epilepticus (principal); I10 Essential (primary) hypertension; K21.9 Gastro-esophageal reflux disease without esophagitis; I25.2 Old myocardial infarction; Z87.891 Personal history of nicotine dependence; Z88.6 Allergy status to analgesic agent; Z79.899 Other long term (current) drug therapy
CPT/HCPCS: 36415; 80053; 80185; 85025; 96374; 99284-25; Q2009

== ENCOUNTER 2023-06-12 09:58 | Emergency (ER) | payer MEDICARE ==
[~2023-06-12] VITALS: Ht 165.1 cm; Wt 103.9 kg
[2023-06-12 10:12] LABS: HEMOGLOBIN 11.8 g/dL (12.0-18.0)
[2023-06-12 10:17] LABS: BASOPHILS 2.8 % (0-2); EOSINOPHILS 6.6 % (0-6); HEMATOCRIT 34.6 % (35.0-50.0); LYMPHOCYTES 20.5 % (24-44); MCH 30.6 (27-36); MCV 89.8 fl (81-99); MONOCYTES 4.8 % (0-12); NEUTROPHILS 65.3 % (39-80); PLATELET COUNT 157 K/uL (140-440); RBC 3.85 M/ul (4.3-5.7); RDW 13.8 (10.5-15.0)
[2023-06-12 10:25] LABS: ALBUMIN 2.7 g/dL (3.4-5.0); ALBUMIN/GLOBULIN RATIO 0.59 (1.1-2.4); ALKALINE PHOSPHATASE 95 U/L (46-116); ALT (SGPT) 19 U/L (14-59); ANION GAP 14.9 (7-21); AST (SGOT) 23 U/L (15-37); BILIRUBIN, TOTAL 0.4 ng/dL (0.2-1.0); BUN/CREATININE RATIO 12.64 (6.0-28.6); CALCIUM 9.3 mg/dL (8.5-10.1); CARBON DIOXIDE 25 mmol/L (21-32); CHLORIDE 104 mmol/L (98-107); CREATININE, SERUM 0.87 mg/dL (0.55-1.02); GLOMERULAR FILTRATION RATE,EST 69 mL/min (>60); POTASSIUM 3.9 mmol/L (3.5-5.1); PROTEIN, TOTAL 7.3 g/dL (6.4-8.2); UREA NITROGEN 11 mg/dL (7-18)
[2023-06-12 13:42] LABS: BILIRUBIN, URINE NEGATIVE (negative); BLOOD/HGB, URINE NEGATIVE (Negative); KETONE, URINE NEGATIVE (Negative); LEUK ESTERASE, URINE SMALL (negative); NITRITE, URINE NEGATIVE (negative); PH, URINE 7.5 (5-7)
[2023-06-12 13:49] LABS: BACTERIA, URINE RARE /hpf (negative); EPITHELIAL CELLS, URINE SQUAMOUS 2+ /lpf (0-1+); RED BLOOD CELLS, URINE 0-1 /hpf (0-5); REFLEX CULTURE, URINE No (No)
[2023-06-12 16:57] VITALS: BP 129/73
== END 2023-06-12 16:58 | disposition home or self-care (01) ==
LOC: ED 09:58
PROVIDERS: Emergency Medicine
DX: G40.909 Epilepsy, unspecified, not intractable, without status epilepticus (principal); M25.561 Pain in right knee; I10 Essential (primary) hypertension; I25.2 Old myocardial infarction; Z87.891 Personal history of nicotine dependence; Z88.6 Allergy status to analgesic agent; Z79.51 Long term (current) use of inhaled steroids; Z79.899 Other long term (current) drug therapy
CPT/HCPCS: 36415; 73560; 80053; 80185; 81001; 85025; 96365; 96375; 99284-25; A9270; J2060; Q2009